=== PATIENT | female | born 1965 | race Caucasian/White ===

== ENCOUNTER 2019-05-05 11:22 | Emergency (ER) | payer MEDICARE, SELFPAY ==
[2019-05-05 11:28] VITALS: BP 117/68; PULSE 95; RESP 19; TEMP 36.3; O2SAT 100
--- NOTE | 2019-05-05 11:53 | ED.ABDPAIN ---
HPI - Abdominal Pain General Chief Complaint: Recheck/Abnormal Lab/Rx Stated Complaint: Feet and legs numb x 3 weeks Time Seen by Provider: 05/05/19 11:28 Source: patient Mode of arrival: ambulatory Limitations: no limitations History of Present Illness HPI narrative: Patient is a 53-year-old female who presents to emergency department for evaluation of abnormal blood work noting that she has been having some numbness to the lower extremities bilateral for the last 3 weeks followed by primary care had blood work performed was found to have leukocytosis and referred to emergency department for further evaluation. On arrival patient notes she has been having numbness to the posterior aspects of the legs from the feet up into the thighs patient denies similar occurrence in the past injury or trauma does have history of chronic low back pain and notes having had an unchanged recent MRI of the lumbar spine. Patient on arrival presents per normal gait no distress denies any illness or recent illness or possible sick contacts Related Data Allergies Allergy/AdvReac Type Severity Reaction Status Date / Time codeine Allergy Unknown Hives / Verified 05/05/19 11:34 Red Face morphine Allergy Unknown Swelling Verified 05/05/19 11:34 Penicillins Allergy Unknown Hives / Verified 05/05/19 11:34 Red Face Review of Systems Review of Systems: All systems reviewed & are unremarkable except as noted in HPI and below PMFSH Past Medical History Medical History (Updated 05/05/19 @ 14:22 by Kyree Bauer PA-C) Bipolar disorder Surgical History Surgical History History of lumbar surgery Social History Social History (Updated 05/05/19 @ 12:01 by Kyree Bauer PA-C) Smoking status: Current every day smoker Gender identity (if verbalized by the patient): Female Exam Narrative: Exam Narrative: GENERAL: Well-appearing, well-nourished, and in no acute distress. HEAD: Normocephalic, atraumatic. EYES: PERRLA and EOMI. ENT: Nares clear, no rhinorrhea or epistaxis. Mucous membranes moist. Oropharynx without tonsillar hypertrophy exudate or other lesions. Bilateral TMs pearly ferreira nonbulging NECK: Supple. No adenopathy or masses. CHEST: Clear to auscultation. No respiratory distress. No wheezes rales or rhonchi HEART: Regular rate and rhythm. No murmur heard. Normal peripheral pulses. ABDOMEN: Soft, nontender, nondistended EXTREMITIES: Normal range of motion. No edema. SKIN: Warm, dry, no rash. NEURO: No focal deficits. Alert and oriented x3. Cranial nerves II through XII grossly intact. Neurovascularly intact. Normal speech. Motor and sensory intact symmetrical in the extremities PSYCH: Normal mood and affect. Course Course Emergency Course: Patient in the room in no distress aware of case findings treatment plan and diagnosis agreeing to follow-up as directed Consultations Consultation #1: Reviewed case with primary care who will reevaluate patient in clinic Date: 05/05/19 Vital Signs Vital signs: Vital Signs Temperature 97.3 F L 05/05/19 11:28 Pulse Rate 95 05/05/19 11:28 Respiratory Rate 19 05/05/19 11:28 Blood Pressure 117/68 05/05/19 11:28 Pulse Oximetry 100 05/05/19 11:28 Temperature 97.3 F L 05/05/19 11:28 Pulse Rate 77 05/05/19 12:26 Respiratory Rate 18 05/05/19 12:26 Blood Pressure 102/71 05/05/19 12:26 Pulse Oximetry 96 05/05/19 12:26 MDM - Abdominal Pain MDM Narrative Medical decision making narrative: Patient in the room in no distress without any high risk changes in the blood work felt appropriate for continued outpatient reevaluation by primary care Lab Data Result diagrams: 05/05/19 11:50 05/05/19 11:50 Labs: Lab Results 05/05/19 05/05/19 05/05/19 Range/Units 11:50 11:50 11:50 WBC 11.5 H (4.5-10.0) K/mm3 RBC 4.47 (4.2-5.4) M/mm3 Hgb 12.0 (12.0-15.0) g
[2019-05-05 12:18] LABS: Basophils Absolute Auto 0.1 K/mm3 (0.0-0.1); Basophils Percent Auto 0.7 % (0.2-1.2); Eosinophils Absolute Auto 0.2 K/mm3 (0-0.3); Eosinophils Percent Auto 1.8 % (0-4.4); Hematocrit 38.4 % (37.0-47.0); Immature Granulocyte Absolute 0.04 K/mm3 (0.00-0.031); Immature Granulocyte Percent A 0.3 % (0-0.5); Lymphocytes Absolute Auto 2.27 K/mm3 (0.9-3.2); Lymphocytes Percent Auto 19.8 % (18.3-44.2); Mean Corpuscular HGB Conc 31.3 g/dl (32-36); Mean Corpuscular Hemoglobin 26.8 pg (26-34); Mean Corpuscular Volume 85.9 fl (80-100); Mean Platelet Volume 12.1 fl (7.4-10.4); Monocytes Absolute Auto 0.6 K/mm3 (0.1-0.6); Monocytes Percent Auto 5.5 % (2.6-8.5); Neutrophils Absolute Auto 8.2 K/mm3 (1.3-6.7); Neutrophils Percent Auto 71.9 % (45.5-73.1); Platelet Count Result 276 k/mm3 (150-375); Red Blood Count 4.47 M/mm3 (4.2-5.4); White Blood Count 11.5 K/mm3 (4.5-10.0)
[2019-05-05 12:26] VITALS: BP 102/71; PULSE 77; RESP 18; O2SAT 96
[2019-05-05] MEDS: SODIUM CHLORIDE 0.9% IV 500 ML 999 ML IV CONT (12:26)
[2019-05-05 12:30] LABS: Lactic Acid Reflex 1.8 mmol/L (0.7-2.1)
[2019-05-05 12:34] LABS: Alanine Aminotransferase 26 U/L (4-35); Albumin Level 4.1 g/dL (3.5-5.1); Alkaline Phosphatase 76 U/L (38-126); Aspartate Amino Transferase 30 U/L (14-36); Bilirubin,Total 0.2 mg/dL (0.2-1.3); Blood Urea Nitrogen 12 mg/dL (7-17); CRP < 0.5 mg/dL (<1.0); Calcium 8.9 mg/dL (8.4-10.2); Carbon Dioxide 26 mmol/L (22-30); Chloride 101 mmol/L (98-107); Estimated Glomerular Filt Rate > 60; Glucose 93 mg/dL (65-105); Magnesium 2.1 mg/dL (1.6-2.3); Phosphorus 4.4 mg/dL (2.5-4.5); Potassium 4.2 mmol/L (3.4-5.0); Sodium 138 mmol/L (137-145)
[2019-05-05 13:06] LABS: Erythrocyte Sedimentation Rate 19 mm/hr (0-20)
[2019-05-05 14:23] VITALS: BP 112/66; PULSE 71; RESP 14; O2SAT 99
[2019-05-05 15:53] VITALS: BP 101/61; PULSE 69; RESP 14; O2SAT 99
== END 2019-05-05 15:06 | disposition home or self-care (01) ==
PROVIDERS: Emergency Medicine Emergency Medical Services; Emergency Provider Emergency Medicine; PCP Student in an Organized Health Care Education/Training Program
DX: R20.2 Paresthesia of skin (principal); F17.200 Nicotine dependence, unspecified, uncomplicated
CPT/HCPCS: 36415; 80053; 83605; 83735; 84100; 85025; 85652; 86140; 87040; 96360; 99283; 99284; J7040

== ENCOUNTER 2020-01-03 09:45 | Outpatient (NON) | payer MEDICARE, SELFPAY ==
[2020-01-03 23:37] LABS: SARS-CoV-2 RNA PCR Negative
== END 2020-01-03 09:46 ==
LOC: ANHCOVIDDT 09:46
PROVIDERS: PCP Student in an Organized Health Care Education/Training Program; Visit Provider Student in an Organized Health Care Education/Training Program
DX: Z20.828 Contact with and (suspected) exposure to other viral communicable diseases (principal); R06.02 Shortness of breath; R05 Cough
CPT/HCPCS: 87635; C9803; U0003

== ENCOUNTER 2021-02-14 09:12 | Outpatient (CLI) | payer MEDICARE, SELFPAY ==
--- NOTE | ~2021-02-14 | XR_ITS ---
EXAMINATION: XR lumbar spine 2-3V DATE: 02/14/2021 09:25 INDICATION: Lumbar radiculopathy TECHNIQUE: Anteroposterior and lateral views of the lumbar spine, and cone-down lateral view of the l umbosacral junction were obtained. COMPARISON: 02/25/2013; CT, 01/13/2014 FINDINGS: There are changes of anterior and posterior fusion from L3 through L5. There is chronic and unchanged lucency surrounding the L5 screws. Bone alignment is normal. There is no fracture. Surgica l clips in the right upper quadrant are likely from prior cholecystectomy. Surgical changes are noted in the left upper quadrant. The bowel gas pattern is unremarkable. IMPRESSION: 1. Changes of anterior and posterior fusion from L3 through L5 with chronic lucency surrounding the L 5 screws, likely chronic loosening. No significant change. Reviewed, dictated and finalized at location A. RSHED PROGRAM MANAGER IMPRESSION: 1. Changes of anterior and posterior fusion from L3 through L5 with chronic donald ency surrounding the L5 screws, likely chronic loosening. No significant change .
== END 2021-02-14 09:13 | disposition home or self-care (01) ==
LOC: ANHIMG 09:16
PROVIDERS: PCP Student in an Organized Health Care Education/Training Program; Visit Provider Family Medicine
DX: M51.85 Other intervertebral disc disorders, thoracolumbar region (principal); F17.290 Nicotine dependence, other tobacco product, uncomplicated; F17.208 Nicotine dependence, unspecified, with other nicotine-induced disorders; Z98.1 Arthrodesis status; E88.81 Metabolic syndrome and other insulin resistance
CPT/HCPCS: 72100

== ENCOUNTER 2021-05-19 20:18 | Emergency (ER) | payer MEDICARE, SELFPAY ==
--- NOTE | ~2021-05-19 | XR_ITS ---
EXAMINATION: XR wrist LT min 3V DATE: 05/19/2021 20:46 INDICATION: Left wrist pain and deformity post fall TECHNIQUE: Posteroanterior, ulnar deviation, oblique, and lateral views of the left wrist were obtain ed. COMPARISON: none FINDINGS: Nondisplaced transverse extra-articular fracture across the distal metaphysis of the left radius. The re is dorsal impaction with buckling and mild comminution along the dorsal cortex. This results in 17 degrees dorsal tilt of the distal articular surface no other fractures identified. Normal alignment and joint spaces in the visualized left hand. Soft tissue swelling about the wrist. IMPRESSION: 1. Nondisplaced dorsally impacted extra articular fracture of the distal left radius. Reviewed, dictated and finalized at location A. IMPRESSION: 1. Nondisplaced dorsally impacted extra articular fracture of the distal left r adius.
[2021-05-19 20:19] VITALS: BP 129/72; PULSE 83; RESP 18; TEMP 35.9; O2SAT 100
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
--- NOTE | 2021-05-19 21:19 | PC.NURSE ---
left volar splint applied with cast padding and nelly wrap. C post application: CR< 2sec, CMS intact.
[2021-05-19 21:38] VITALS: PULSE 85; RESP 18; O2SAT 100
== END 2021-05-19 21:39 | disposition home or self-care (01) ==
PROVIDERS: Emergency Provider Emergency Medicine; PCP Student in an Organized Health Care Education/Training Program
DX: S52.552A Other extraarticular fracture of lower end of left radius, initial encounter for closed fracture (principal); F17.200 Nicotine dependence, unspecified, uncomplicated; W18.39XA Other fall on same level, initial encounter
CPT/HCPCS: 29125; 73110; 99284

== ENCOUNTER 2022-03-06 11:50 | Outpatient (CLI) | payer MEDICARE, SELFPAY ==
--- NOTE | ~2022-03-06 | XR_ITS ---
Lumbosacral Spine: AP and lateral views Clinical History: Pain COMPARISON: 02/14/2021 Findings: The normal lordotic curve is maintained. Stable posterior fusion hardware from L3 through L 5 with bilateral rods and transpedicular screws, as well as associated disc fusion devices at the L3- L4 and L4-L5 disc spaces. Remaining disc spaces are intact. The sacroiliac joints are normally outlin ed. Impression: No acute abnormality. No change from prior exam. Stable postoperative findings, as above. Reviewed, dictated and finalized at location M. LOPE STAMPING MACHINE OPERATOR Impression: No acute abnormality. No change from prior exam. Stable postoperative findings, as above.
== END 2022-03-06 11:51 | disposition home or self-care (01) ==
PROVIDERS: PCP Student in an Organized Health Care Education/Training Program; Visit Provider Pain Medicine Interventional Pain Medicine
DX: M47.26 Other spondylosis with radiculopathy, lumbar region (principal); E88.81 Metabolic syndrome and other insulin resistance; F17.290 Nicotine dependence, other tobacco product, uncomplicated; G89.4 Chronic pain syndrome; M51.37 Other intervertebral disc degeneration, lumbosacral region; M51.84 Other intervertebral disc disorders, thoracic region
CPT/HCPCS: 72100

== ENCOUNTER 2022-07-22 13:14 | Emergency (ER) | payer MEDICARE, SELFPAY ==
--- NOTE | ~2022-07-22 | XR_ITS ---
EXAMINATION: XR foot RT min 3V DATE: 07/22/2022 13:33 INDICATION: Right foot injury and pain. TECHNIQUE: 4 views of right foot were obtained. COMPARISON: None. FINDINGS: Bone alignment is normal. No fracture. There is mild osteoarthritis of talonavicular joint. There is an enthesophyte at posterior aspect of calcaneal tuberosity. IMPRESSION: 1. No fracture. Reviewed, dictated and finalized at location A. IMPRESSION: 1. No fracture.
[2022-07-22 13:25] VITALS: BP 111/75; PULSE 89; RESP 16; TEMP 36.6; O2SAT 97
[2022-07-22 13:28] VITALS: BP 111/75; PULSE 89; RESP 16; TEMP 36.6; O2SAT 97
--- NOTE | 2022-07-22 13:39 | ED.LOWEXIN ---
HPI - Extremity Injury (Lower) General Chief Complaint: Extremity Injury, Lower Stated Complaint: R FOOT INJURY Time Seen by Provider: 07/22/22 13:38 Source: patient and RN notes reviewed Mode of arrival: ambulatory Limitations: no limitations History of Present Illness HPI Narrative: 56-year-old female presents with concern for foot injury. She reports about an hour prior to arrival she got up from her chair and tripped and bent her foot awkwardly. She reports dorsal foot pain. She denies intervention MD complaint: foot injury Related Data Home Medications Medication Instructions Recorded Confirmed aripiprazole 10 mg tablet 10 mg PO DAILY 07/22/22 07/22/22 buspirone 5 mg tablet 5 mg PO TID 07/22/22 07/22/22 desvenlafaxine succinate 100 mg 100 mg PO DAILY 07/22/22 07/22/22 tablet,extended release 24 hr methocarbamol 500 mg tablet 500 mg PO BID 07/22/22 07/22/22 oxycodone-acetaminophen 10 mg-325 1 tablet PO TID 07/22/22 07/22/22 mg tablet trazodone 100 mg tablet 10 mg PO HS 07/22/22 07/22/22 Allergies Allergy/AdvReac Type Severity Reaction Status Date / Time codeine Allergy Unknown Hives / Verified 07/22/22 13:26 Red Face morphine Allergy Unknown Swelling Verified 07/22/22 13:26 Penicillins Allergy Unknown Hives / Verified 07/22/22 13:26 Red Face Review of Systems Review of Systems: CONSTITUTIONAL: Denies malaise, chills, sweats, or fever. SKIN: Denies rash or itching, open skin, laceration, abrasion, redness, warmth, swelling. MUSCULOSKELETAL: Reports right dorsal foot pain, bruising NEUROLOGIC: Denies numbness, weakness All systems reviewed & are unremarkable except as noted in HPI and below PMFSH Past Medical History Medical History Bipolar disorder Surgical History Surgical History History of lumbar surgery Social History Social History Smoking status: Current every day smoker Gender identity (if verbalized by the patient): Female Comments At time of signature, agree with nursing past medical, surgical, social and family history. There is no relevant family history pertinent to the presenting complaint Exam Narrative: GENERAL: Well-appearing, well-nourished, and in no acute distress. HEAD: Normocephalic, atraumatic. EYES: PERRLA, conjunctivae clear NECK: Supple. CHEST: Speaks in full sentences. No respiratory distress. HEART: Regular rate and rhythm. Normal and equal peripheral pulses. EXTREMITIES: Right ankle, foot, digits have normal strength and sensation, normal range of motion. No edema, mild dorsal ecchymosis. 5/5 strength with ankle in digit flexion and extension. Normal sensation with sensitivity to light touch and pain. Lateral foot tenderness. No open wounds, no skin tenting, no devitalized tissue or atrophy, no trophic changes, no obvious deformity, alignment normal, nearby joints and structures intact. Distal pulses palpable and equal bilaterally, skin warm, dry, pink. Capillary refill less than 3 seconds. SKIN: Warm, dry, no rash. NEURO: Alert and oriented x3. PSYCH: Normal mood and affect Course Course Emergency Course: Patient is aware of diagnosis, understands and agrees to treatment plan. Anticipatory guidance given. Patient agrees to follow-up as directed and is aware of reasons to seek care at the emergency department. Portions of this record may have been created with voice recognition software Level of Care: Express Care Visit Vital Signs Vital signs: Vital Signs Temperature 97.8 F 07/22/22 13:25 Pulse Rate 89 07/22/22 13:25 Respiratory Rate 16 07/22/22 13:25 Blood Pressure 111/75 07/22/22 13:25 Pulse Oximetry 97 07/22/22 13:25 Temperature 97.8 F 07/22/22 13:28 Pulse Rate 89 07/22/22 13:28 Respiratory Rate 16 07/22/22 13:28 Blood Pressure
== END 2022-07-22 14:38 | disposition home or self-care (01) ==
PROVIDERS: Emergency Provider Nurse Practitioner; PCP Student in an Organized Health Care Education/Training Program
DX: S93.601A Unspecified sprain of right foot, initial encounter (principal); X50.9XXA Other and unspecified overexertion or strenuous movements or postures, initial encounter; F31.9 Bipolar disorder, unspecified; F17.200 Nicotine dependence, unspecified, uncomplicated
CPT/HCPCS: 73630; 99213; G0463

== ENCOUNTER 2023-02-24 09:58 | Outpatient (CLI) | payer MEDICARE, SELFPAY ==
--- NOTE | ~2023-02-24 | XR_ITS ---
Lumbosacral Spine: AP and lateral views Clinical History: Postoperative COMPARISON: 03/06/2022 Findings: The normal lordotic curve is maintained. No acute fracture or subluxations seen. There is s table posterior and interbody fusion from L3 through L5. There is mild to moderate degenerative disc narrowing at L2-L3. The sacroiliac joints are normally outlined. Impression: Stable posterior and interbody fusion from L3 through L5. Mild to moderate degenerative disc narrowing at L2-L3. Reviewed, dictated and finalized at location M. ONAL FACILITIES MANAGER Impression: Stable posterior and interbody fusion from L3 through L5. Mild to moderate degenerative disc narrowing at L2-L3.
== END 2023-02-24 09:59 | disposition home or self-care (01) ==
PROVIDERS: PCP Student in an Organized Health Care Education/Training Program; Visit Provider Pain Medicine Interventional Pain Medicine
DX: M51.37 Other intervertebral disc degeneration, lumbosacral region (principal); M47.26 Other spondylosis with radiculopathy, lumbar region; F17.208 Nicotine dependence, unspecified, with other nicotine-induced disorders; Z98.1 Arthrodesis status
CPT/HCPCS: 72100

== ENCOUNTER 2024-02-02 11:21 | Outpatient (CLI) | payer MEDICARE, SELFPAY ==
--- NOTE | ~2024-02-02 | CT_ITS ---
EXAMINATION:CT lung screening DATE: 02/02/2024 11:39 INDICATION: Personal history of nicotine dependence. Current smoker with 34 pack year history. TECHNIQUE: Computed tomography (CT) of the chest was performed without intravenous contrast. Automate d exposure control and iterative reconstruction technique were employed. The dose-length product (DLP ) was 65.69 mGy-cm. COMPARISON: CT abdomen and pelvis 04/12/2015 FINDINGS: The lungs demonstrate mild atelectasis. No pleural effusion. The heart size is normal. No p ericardial effusion. There are surgical changes of the stomach. There is a small sliding hiatal herni a. There are changes of cholecystectomy. There is moderate thoracic spondylosis. IMPRESSION: 1. Lung-RADS category 1: Negative. Continue annual screening with noncontrast low-dose chest CT in 12 months. Reviewed, dictated and finalized at location A. IZATION MANAGER IMPRESSION: 1. Lung-RADS category 1: Negative. Continue annual screening with noncontrast l ow-dose chest CT in 12 months.
== END 2024-02-02 11:22 | disposition home or self-care (01) ==
LOC: ANHIMG 11:23
PROVIDERS: PCP Student in an Organized Health Care Education/Training Program; Visit Provider Student in an Organized Health Care Education/Training Program
DX: Z12.2 Encounter for screening for malignant neoplasm of respiratory organs (principal); Z87.891 Personal history of nicotine dependence
CPT/HCPCS: 71271

== ENCOUNTER 2024-07-06 15:58 | Outpatient (CLI) | payer MEDICARE, SELFPAY ==
--- NOTE | ~2024-07-06 | XR_ITS ---
Lumbosacral Spine: AP and lateral views Clinical History: Pain COMPARISON: 02/24/2023 Findings: The normal lordotic curve is maintained. Stable posterior and interbody fusion from L3 thro ugh L5, bilateral rods and transpedicular screws present, as well as disc fusion devices. Osseous and orthopedic hardware alignment is unchanged. Moderate degenerative disc change at L2-L3 present. The sacroiliac joints are normally outlined. Impression: Stable fusion changes from L3 through L5, as detailed above. Moderate degenerative disc narrowing at L2-L3. Reviewed, dictated and finalized at location M. Impression: Stable fusion changes from L3 through L5, as detailed above. Moderate degenerative disc narrowing at L2-L3.
--- OUTSIDE RECORDS SUMMARY | 2024-07-06 16:34 | XMS_ITS | Continuity of Care Document ---
Author Organization [facility] Address [address] [place] [address] [place] [address] Phone Care Team Providers Care Planer Operator Name Role Phone Barrett Bañuelos MD Unavailable [...] Diagnoses Date Provider Providers Copied on Encounter [facility], [address], [place], [address], [place] tel:[phone] [facility] No Information 7 Sarmad Hyde. [address] [place], [place], [address] , [place]. [phone] OFFICE/OUTPA TIENT VISIT, EST [facility], [address], [place], [place], [address], [place] [phone] [facility] high RA (chief complaint) lft (chief complaint) B12 (chief complaint) Liver diseaseRheumatoid arthritis with rheumatoid factor, unspecifiedVitamin B12 deficiencyEncounter for oth screening for malignant neoplasm of breast 7 Sarmad Hyde. [address], [place], [place], [address] , [place]. tel:[phone] PREV VISIT, EST, AGE 40-64 [facility], [address], [place], [place], [address], [place] tel:[phone] [facility] PHysical (chief complaint) Encounter for general adult medical exam w abnormal findingsLiver diseasePain in unspecified jointBariatric surgery status 7 Sarmad Hyde. [address], [place], [place], [address] , [place]. [phone] Referring Provider: Radha Keane [address], [place], [place], [address]. tel:[phone] OFFICE/OUTPA TIENT VISIT, EST [facility], [address], [place], [place], [address], [place] tel:[phone] [facility] palpitatio n1 (chief complaint) weight loss1 (chief complaint) PalpitationsAbnorma l weight loss 6 Sarmad Hyde. [address], [place], [place], [address] , [place]. tel:[phone] Referring Provider: Radha Keane [address], [place], [place], [address]. tel:[phone] OFFICE/OUTPA TIENT VISIT, [facility], [address], [place], [place], [address], [place] tel:[phone] [facility] palpitatio n1 (chief complaint) weight loss1 (chief complaint) PalpitationsAbnorma l weight lossLow vision, both eyes 6 Sarmad Hyde. [address], [place], [place], [address] , [place]. tel:[phone] Referring Provider: Radha Keane [address], [place], [place], [address]. tel:[phone] OFFICE/OUTPA TIENT VISIT, [facility], [address], [place], [place], [address], [place] [phone] [facility] anxiety1 (chief complaint) Anxiolytic dependencePatient noncompliance w/ other medical regimen 6 Sarmad Hyde. [address], [place], [place], [address] , [place]. tel:[phone] Referring Provider: Radha Keane [address], [place], [place], [address]. tel:[phone] OFFICE/OUTPA TIENT VISIT, [facility], [address], [place], [place], [address], [place] [phone] [facility] anxiety1 (chief complaint) GERD (chief complaint) GERD w/o esophagitisAnxiolyt ic dependence 6 Sarmad Hyde. [address], [place], [place], [address] , [place]. tel:[phone] Referring Provider: Radha Keane [address], [place], [place], [address]. tel:[phone] OFFICE/OUTPA TIENT VISIT, [facility], [address], [place], [place], [address], [place] tel:[phone] [facility] anxiety1 (chief complaint) GERD1 (chief complaint) GERD without esophagitisAnxiolyt ic dependence 6 Sarmad Hyde. [address], [place], [place], [address] , [place]. tel:[phone] Referring Provider: Radha Keane [address], [place], [place], [address]. tel:[phone] OFFICE/OUTPA TIENT VISIT, [facility], [address], [place], [place], [address], [place] tel:[phone] [facility] Anxiety1 (chief complaint) abd pain1 (chief complaint) Abdominal painGeneralized anxiety disorder May-0 4201 6 Sarmad Hyde. [address], [place], [place], [address] , [place]. tel:[phone] Referring Provider: Barrett Bañuelos, [address], [place], [place], [address]. tel:[phone] OFFICE/OUTPA TIENT VISIT, [facility], [address], [place], [place], [address], [place] tel:[phone] [facility] anxiety1 (chief complaint) GERD1 (chief complaint) headache1 (chief complaint) HLP (chief complaint) GERD without esophagitisMixed hyperlipidemiaGener alized anxiety disorderVitamin D deficiency, unspecified Apr-0 5-201 6 Sarmad Hyde. [address], [place], [address] , [place]. tel:[phone] Referring Provider: Radha Keane [address], [place], [place], [address]. tel:[phone] OFFICE/OUTPA TIENT VISIT, [facility], [address], [place], [address], [place] tel:[phone] [facility] abdominal pain (chief complaint) abd pain1 (chief complaint) anxiety1 (chief complaint) Abdominal painGeneralized anxiety disorder Mar-0 9201 6 Sarmad Hyde. [address], [place], [place], [address] , [place]. tel:[phone] Referring Provider: Radha Keane [address], [place], [place], [address]. tel:[phone] OFFICE/OUTPA TIENT VISIT, [facility], [address], [place], [address], [place] tel:[phone] [facility] Medicine anxiety1 (chief complaint) abd pain (chief complaint) Other specified diseases of biliary tractAbdominal painGeneralized anxiety disorder 6 Sarmad Hyde. [address], [place], [place], [address] , [place]. tel:[phone] Referring Provider: Barrett Bañuelos, [address], [place], [place], [address]. tel:[phone] OFFICE/OUTPA TIENT VISIT, [facility], [address], [place], [address], [place] tel:[phone] [facility] anxiety1 (chief complaint) GERD1 (chief complaint) GERD w/o esophagitisGenerali zed anxiety disorderMixed hyperlipidemia 6 Sarmad Hyde. [address], [place], [place], [address] , [place]. tel:[phone] Referring Provider: Radha Keane [address], [place], [place], [address]. tel:[phone] OFFICE/OUTPA TIENT VISIT, [facility], [address], [place], [place], [address], [place] tel:[phone] [facility] Anxiety1 (chief complaint) GERD1 (chief complaint) postmenopa usal1 (chief complaint) headache1 (chief complaint) Menopausal disorderGeneralized Anxiety DisorderMigraine without aura, not intractable, without status migrainosus 5 Sarmad Hyde. [address], [place], [place], [address] , [place]. tel:[phone] Referring Provider: Radha Keane [address], [place], [address]. tel:[phone] OFFICE/OUTPA TIENT VISIT, [facility], [address], [place], [place], [address], [place] tel:[phone] [facility] Medicine headacahe1 (chief complaint) GERD1 (chief complaint) Anxiety1 (chief complaint) GERD without esophagitisMigraine without aura, not intractable, without status migrainosusGenerali zed anxiety disorderEncounter for screening for osteoporosis 5 Sarmad Hyde. [address], [place], [address] , [place]. [phone] Referring Provider: Radha Keane [address], [place], [address]. tel:[phone] PREV VISIT, EST, AGE 40-64 [facility], [address], [place], [place], [address], [place] tel:[phone] [facility] Physical (chief complaint) Encounter for adult health check-upChronic migraine w/o aura, not intractable, w/o stat migrGeneralized abdominal painGeneralized anxiety disorder 5 Sarmad Hyde. [address], [place], [place], [address] , [place]. [phone] Referring Provider: Radha Keane [address], [place], [place], [address]. tel:[phone] OFFICE/OUTPA TIENT VISIT, [facility], [address], [place], [address], [place] tel:[phone] [facility] headache (chief complaint) Anxeity (chief complaint) abd pain (chief complaint) HeadacheAbnormal MRI of brainAbdominal pain 5 Sarmad Hyde. [address], [place], [address] , [place]. tel:[phone] Referring Provider: Radha Keane [address], [place], [place], [address]. tel:[phone] OFFICE/OUTPA TIENT VISIT, [facility], [address], [place], [place], [address], [place] tel:[phone] [facility] vomiting (chief complaint) Anxiety (chief complaint) headache (chief complaint) postmeno (chief complaint) Generalized anxiety disorderEsophageal refluxHeadachePostm enopausal 5 Sarmad Hyde. [address], [place], [place], [address] , [place]. tel:[phone] Referring Provider: Radha Keane [address], [place], [place], [address]. tel:[phone] OFFICE/OUTPA TIENT VISIT, [facility], [address], [place], [place], [address], [place] tel:[phone] [facility] headache (chief complaint) Anxeity (chief complaint) HeadacheLumbagoGene ralized anxiety disorder 5 Sarmad Hyde. [address], [place], [place], [address] , [place]. [phone] Referring Provider: Radha Keane [address], [place], [place], [address]. tel:[phone] OFFICE/OUTPA TIENT VISIT, [facility], [address], [place], [place], [address], [place] tel:[phone] [facility] headache (chief complaint) Anxiety (chief complaint) HeadacheBenign neoplasm of colon 5 Sarmad Hyde. [address], [place], [place], [address] , [place]. [phone] Referring Provider: Radha Keane [address], [place], [place], [address]. tel:[phone] OFFICE/OUTPA TIENT VISIT, [facility], [address], [place], [place], [address], [place] tel:[phone] [facility] GERD (chief complaint) Anxiety (chief complaint) GERDGeneralized anxiety disorder 5 Sarmad Hyde. [address], [place], [address] , [place]. tel:[phone] Referring Provider: Radha Keane [address], [place], [place], [address]. tel:[phone] OFFICE/OUTPA TIENT VISIT, [facility], [address], [place], [place], [address], [place] [phone] [facility] Anxiety (chief complaint) GERD (chief complaint) headache (chief complaint) back pain (chief complaint) GERDHeadacheGeneral ized anxiety disorderOpioid type dependence, unspecified use 5 Sarmad Hyde. [address], [place], [place], [address] , [place]. tel:[phone] Referring Provider: Barrett Bañuelos, [address], [place], [place], [address]. tel:[phone] OFFICE/OUTPA TIENT VISIT, [facility], [address], [place], [address], [place] tel:[phone] [facility] GERD (chief complaint) Anxiety (chief complaint) GERDSedative, hypnotic or anxiolytic dependence, unspecified 5 Sarmad Hyde. [address], [place], [place], [address] , [place]. tel:[phone] Referring Provider: Radha Keane [address], [place], [place], [address]. tel:[phone] OFFICE/OUTPA TIENT VISIT, [facility], [address], [place], [place], [address], [place] tel:[phone] [facility] HLP (chief complaint) back pain (chief complaint) anxiety (chief complaint) GERD (chief complaint) GERDLumbagoOther and unspecified hyperlipidemiaGener alized anxiety disorder 5 Sarmad Hyde. [address], [place], [place], [address] , [place]. tel:[phone] Referring Provider: Radha Keane [address], [place], [place], [address]. tel:[phone] OFFICE/OUTPA TIENT VISIT, [facility], [address], [place], [place], [address], [place] tel:[phone] [facility] colon polyp (chief complaint) headache (chief complaint) anxiety (chief complaint) back pain (chief complaint) Benign neoplasm of colonGERDHeadacheLu mbago 5 Sarmad Hyde. [address], [place], [place], [address] , [place]. tel:[phone] Referring Provider: Barrett Bañuelos, [address], [place], [place], [address]. tel:[phone] OFFICE/OUTPA TIENT VISIT, [facility], [address], [place], [place], [address], [place] tel:[phone] [facility] back pain (chief complaint) anxiety (chief complaint) headache (chief complaint) LumbagoHeadacheGene ralized anxiety disorder 4 Sarmad Hyde. [address], [place], [place], [address] , [place]. [phone] Referring Provider: Radha Keane [address], [place], [place], [address]. tel:[phone] OFFICE/OUTPA TIENT VISIT, [facility], [address], [place], [place], [address], [place] tel:[phone] [facility] headache (chief complaint) Anxeity (chief complaint) GERD (chief complaint) back pain (chief complaint) HeadacheGERDLumbago 4 Sarmad Hyde. [address], [place], [place], [address] , [place]. tel:[phone] Referring Provider: Barrett Bañuelos [address], [place], [place], [address]. tel:[phone] OFFICE/OUTPA TIENT VISIT, [facility], [address], [place], [place], [address], [place] tel:[phone] [facility] scabie (chief complaint) shingle (chief complaint) anxiety (chief complaint) eye (chief complaint) ScabiesHerpes zoster with unspecified complicationAcute conjunctivitis, unspecified 4 Sarmad Hyde. [address], [place], [address] , [place]. tel:[phone] Referring Provider: Barrett Bañuelos [address], [place], [place], [address]. tel:[phone] OFFICE/OUTPA TIENT VISIT, [facility], [address], [place], [place], [address], [place] tel:[phone] [facility] itching (chief complaint) Scabies 4 Sarmad Hyde. [address], [place], [place], [address] , [place]. [phone] Referring Provider: Barrett Bañuelos, [address], [place], [place], [address]. tel:[phone] OFFICE/OUTPA TIENT VISIT, [facility], [address], [place], [place], [address], [place] [phone] [facility] rash (chief complaint) anxiety (chief complaint) headache (chief complaint) Herpes zoster with unspecified complicationHeadach e 4 Sarmad Hyde. [address], [place], [place], [address] , [place]. [phone] Referring Provider: Radha Keane [address], [place], [place], [address]. tel:[phone] OFFICE/OUTPA TIENT VISIT, [facility], [address], [place], [place], [address], [place] [phone] [facility] anxiety (chief complaint) headache (chief complaint) HeadacheGERD 4 Sarmad Hyde. [address], [place], [place], [address] , [place]. tel:[phone] Referring Provider: Radha Keane [address], [place], [place], [address]. tel:[phone] OFFICE/OUTPA TIENT VISIT, [facility], [address], [place], [place], [address], [place] tel:[phone] [facility] headache (chief complaint) anxiety (chief complaint) GERD (chief complaint) GERDHeadacheOther chronic sinusitis 4 Sarmad Escudero [address], [place], [place], [address] , [place]. tel:[phone] Referring Provider: Radha Keane [address], [place], [place], [address]. tel:[phone] OFFICE/OUTPA TIENT VISIT, [facility], [address], [place], [place], [address], [place] tel:[phone] [facility] sinus (chief complaint) anxiety (chief complaint) Sinusitis, AcuteLumbago 4 Sarmad Escudero [address], [place], [place], [address] , [place]. tel:[phone] Referring Provider: Radha Keane [address], [place], [place], [address]. tel:[phone] OFFICE/OUTPA TIENT VISIT, [facility], [address], [place], [place], [address], [place] tel:[phone] [facility] back pain (chief complaint) headache (chief complaint) GERD (chief complaint) HeadacheLumbagoGERD 4 Sarmad Escudero [address], [place], [place], [address] , [place]. tel:[phone] Referring Provider: Radha Keane [address], [place], [place], [address]. tel:[phone] OFFICE/OUTPA TIENT VISIT, [facility], [address], [place], [place], [address], [place] tel:[phone] [facility] headache (chief complaint) anxiety (chief complaint) tinnitus (chief complaint) Tinnitus, unspecifiedHeadache 4 Sarmad Escudero [address], [place], [address] , [place]. tel:[phone] Referring Provider: Radha Keane [address], [place], [place], [address]. tel:[phone] OFFICE/OUTPA TIENT VISIT, [facility], [address], [place], [place], [address], [place] tel:[phone] [facility] tinnitus (chief complaint) anxiety (chief complaint) headache (chief complaint) Tinnitus, unspecifiedHeadache Apr-0 2-201 4 Sarmad Hyde. [address], [place], [place], [address] , [place]. tel:[phone] Referring Provider: Radha Keane [address], [place], [place], [address]. tel:[phone] OFFICE/OUTPA TIENT VISIT, [facility], [address], [place], [place], [address], [place] tel:[phone] [facility] anxiety (chief complaint) headache (chief complaint) Syncope and collapseHeadache Mar-0 5-201 4 Sarmad Hyde. [address], [place], [place], [address] , [place]. tel:[phone] Referring Provider: Radha Keane [address], [place], [place], [address]. tel:[phone] OFFICE/OUTPA TIENT VISIT, [facility], [address], [place], [place], [address], [place] tel:[phone] [facility] headache (chief complaint) GERD (chief complaint) anxiety (chief complaint) HeadacheGERD Feb-0 4-201 4 Sarmad Hyde. [address], [place], [place], [address] , [place]. tel:[phone] Referring Provider: Radha Keane [address], [place], [place], [address]. tel:[phone] OFFICE/OUTPA TIENT VISIT, [facility], [address], [place], [address], [place] tel:[phone] [facility] abdominal pain (chief complaint) anxiety (chief complaint) back pain (chief complaint) GERDLumbago 4 Sarmad Hyde. [address], [place], [place], [address] , [place]. tel:[phone] Referring Provider: Barrett Bañuelos, [address], [place], [place], [address]. tel:[phone] OFFICE/OUTPA TIENT VISIT, [facility], [address], [place], [place], [address], [place] tel:[phone] [facility] abdominal pain (chief complaint) anxiety (chief complaint) GERDAbdominal Pain 3 Sarmad Hyde. [address], [place], [place], [address] , [place]. tel:[phone] Referring Provider: Radha Keane [address], [place], [place], [address]. tel:[phone] OFFICE/OUTPA TIENT VISIT, [facility], [address], [place], [place], [address], [place] tel:[phone] [facility] abdominal pain (chief complaint) anxiety (chief complaint) headache (chief complaint) Abdominal PainGERDHeadache 3 Sarmad Hyde. [address], [place], [place], [address] , [place]. tel:[phone] Referring Provider: Radha Keane [address], [place], [place], [address]. tel:[phone] OFFICE/OUTPA TIENT VISIT, [facility], [address], [place], [place], [address], [place] tel:[phone] [facility] abdominal pain (chief complaint) anxiety (chief complaint) Abdominal PainGERDLumbago 0 3 Sarmad Hyde. [address], [place], [place], [address] , [place]. tel:[phone] Referring Provider: Radha Keane [address], [place], [place], [address]. tel:[phone] OFFICE/OUTPA TIENT VISIT, [facility], [address], [place], [place], [address], [place] tel:[phone] [facility] anxiety (chief complaint) vomiting (chief complaint) headache (chief complaint) GERDHeadacheNausea And Vomiting 3 Sarmad Hyde. [address], [place], [place], [address] , [place]. tel:[phone] Referring Provider: Radha Keane [address], [place], [place], [address]. tel:[phone] OFFICE/OUTPA TIENT VISIT, [facility], [address], [place], [place], [address], [place] tel:[phone] [facility] anxiety (chief complaint) pain (chief complaint) GERD (chief complaint) Generalized anxiety disorderGERDPain in joint involving multiple sites 3 Sarmad Hyde. [address], [place], [place], [address] , [place]. tel:[phone] Referring Provider: Radha Keane [address], [place], [place], [address]. tel:[phone] OFFICE/OUTPA TIENT VISIT, [facility], [address], [place], [place], [address], [place] tel:[phone] [facility] anxiety (chief complaint) headache (chief complaint) arthritis (chief complaint) Generalized anxiety disorderHeadacheCHR ONIC PAIN NEC 3 Sarmad Hyde. [address], [place], [place], [address] , [place]. tel:[phone] Referring Provider: Radha Keane [address], [place], [place], [address]. tel:[phone] OFFICE/OUTPA TIENT VISIT, [facility], [address], [place], [place], [address], [place] tel:[phone] [facility] Headache (chief complaint) GERD (chief complaint) chronic pain (chief complaint) anxiety (chief complaint) HeadacheGERDGeneral ized anxiety disorder 3 Sarmad Hyde. [address], [place], [place], [address] , [place]. tel:[phone] Referring Provider: Radha Keane [address], [place], [place], [address]. tel:[phone] OFFICE/OUTPA TIENT VISIT, [facility], [address], [place], [address], [place] tel:[phone] [facility] GERD (chief complaint) anxiety (chief complaint) GERDGeneralized anxiety disorderBipolar disorder, unspecified 3 Sarmad Escudero [address], [place], [place], [address] , [place]. tel:[phone] Referring Provider: Radha Keane [address], [place], [place], [address]. tel:[phone] OFFICE/OUTPA TIENT VISIT, [facility], [address], [place], [place], [address], [place] tel:[phone] [facility] headache (chief complaint) anxiety (chief complaint) GERD (chief complaint) GERDHeadacheGeneral ized anxiety disorder 3 Sarmad Escudero [address], [place], [place], [address] , [place]. tel:[phone] Referring Provider: Radha Keane [address], [place], [place], [address]. tel:[phone] OFFICE/OUTPA TIENT VISIT, [facility], [address], [place], [place], [address], [place] tel:[phone] [facility] Headache (chief complaint) abdominal pain (chief complaint) HeadacheGeneralized anxiety disorderGERD 3 Sarmad Escudero [address], [place], [place], [address] , [place]. tel:[phone] Referring Provider: Barrett Bañuelos, [address], [place], [place], [address]. tel:[phone] OFFICE/OUTPA TIENT VISIT, [facility], [address], [place], [place], [address], [place] tel:[phone] [facility] abdominal pain (chief complaint) headache (chief complaint) anxiety (chief complaint) insomnia (chief complaint) Abdominal PainHeadacheGeneral ized anxiety disorderInsomnia, Other 3 Sarmad Hyde. [address], [place], [place], [address] , [place]. [phone] Referring Provider: aBrrett Bañuelos, [address], [place], [place], [address]. tel:[phone] OFFICE/OUTPA TIENT VISIT, [facility], [address], [place], [place], [address], [place] tel:[phone] [facility] epilpesy (chief complaint) anxiety (chief complaint) Epilepsy, unspecified, without mention of intractable epilepsyGeneralized anxiety disorder 3 Sarmad Hyde. [address], [place], [place], [address] , [place]. tel:[phone] Referring Provider: Radha Keane [address], [place], [place], [address]. tel:[phone] OFFICE/OUTPA TIENT VISIT, [facility], [address], [place], [place], [address], [place] tel:[phone] [facility] anxiety (chief complaint) bipolar (chief complaint) back pain (chief complaint) Generalized anxiety disorderMajor depressive affective disorder, single episode, mild degreeLumbago 2 Sarmad Hyde. [address], [place], [place], [address] , [place]. tel:[phone] Referring Provider: Radha Keane [address], [place], [address]. tel:[phone] OFFICE/OUTPA TIENT VISIT, [facility] [facility], [address], [place], [place], [id number], [place] tel:[phone] [facility] syncope (chief complaint) depression (chief complaint) Syncope and collapseGeneralized anxiety disorderBipolar disorder, unspecified 2 Sarmad Hyde. [address], [place], [place], [id number] , [place]. tel:[phone] Referring Provider: Barrett Bañuelos, [address], [place], [place], [id number]. tel:[phone] OFFICE/OUTPA TIENT VISIT, [facility], [address], [place], [place], [address], [place] tel:[phone] [facility] tobacco (chief complaint) Tobacco Abuse 2 Sarmad Hyde. [address], [place], [place], [address] , [place]. tel:[phone] Referring Provider: Radha Keane [address], [place], [place], [id number]. tel:[phone] OFFICE/OUTPA TIENT VISIT, [facility], [address], [place], [place], [address], [place] tel:[phone] [facility] anxiety (chief complaint) epilepsy (chief complaint) EPILEPSY-UNSPECIFIE DLumbagoMajor depressive affective disorder, single episode, mild degreeSyncope and collapse 2 Sarmad Hyde. [address], [place], [place], [id number] , [place]. tel:[phone] Referring Provider: Radha Keane [address], [place], [place], [address]. tel:[phone] OFFICE/OUTPA TIENT VISIT, [facility], [address], [place], [place], [address], [place] tel:[phone] [facility] viral (chief complaint) Viral Infection, Unspecified 2 Sarmad Hyde. [address], [place], [place], [address] , [place]. [phone] Referring Provider: Barrett Bañuelos, [address], [place], [place], [address]. tel:[phone] OFFICE/OUTPA TIENT VISIT, EST [facility], [address], [place], [place], [address], [place] [phone] [facility] back pain (chief complaint) anxiety (chief complaint) LumbagoGeneralized anxiety disorderGeneralized convulsive epilepsy, with intractable epilepsy 2 Sarmad Hyde. [address], [place], [place], [address] , [place]. [phone] Family History Family Member Type Diagnosis Age [...] MD [address] [place], [place], [id number] Ordered: Referrals: Lyssa Aparicio MD. Evaluate and treat ordered Referral Ordered: MRI ABDOMEN W/O & W/DYE ordered Referral Ordered: Faisal West (related to Pain in unspecified joint) ordered Referral Referred To: [facility]
[address] [place], [phone] Ordered: Referrals: Faisal West. Evaluate and treat [...] she does have mulitplie joint pain chronically. weight loss1 Pt has weight lo ss. Pt had normal CT of chest, abdomen and pelvis. Pt had normal lab work. Pt denies any gERD or abd pain now palpitation1 Pt has cardiac p alpitation intermittently. pt denies any chest pain. Pt had benign echo except for right ventricle enlargement. Holter pending. weight loss1 Pt has been losi ng [...] Pt denies any suicidal or homicdial thought GERD Associated sympt oms include back pain [...] not done bone density or mammogram yet anxiety1 Pt has chronic a nxiety and depression. Pt takes zoloft and xanax and doing ok. Pt deneis any suicidal or homicdialt hought. Pt denies any crying spells Anxiety1 Pt has chronic a nxiety anddepression. [...] BM yet. Pt denies any nasusea, vomiting headache1 Pt is seeing chirag whittaker. Pt will try botox. Pt still working with neurology for MS? GERD1 Pt has chornic G ERD and she takes nexium and zantac. Pt denies any GERD symptmos. Pt has chornic nauea, GI will do EGD soon. Pt also will be refered to [facility] for gallbladder polyp. Pt denies any wrosening pain anxiety1 Pt has chronic a nxiety and depression. Pt takes zoloft and xanax and doing ok. Pt denies any worsening symptoms. Pt denies any crying spells HLP Pt has mild HLP. Pt is on low fat and low carb diet. Pt has low D and also elevated B12 anxiety1 Pt has chronic a nxiety and depression. Pt denies any suicidal or homicdial thought Pt takes zoloft and xanax. Pt denies any crying spells. Pt denies any feeling of hopelessness abd pain1 Pt has chronic a bdomianal pain. Pt has chronic nauea, vomiting. Pt is seeing GI and just seen surgeon .Pt has adenomyomatosis but no surgery per surgeon. Pt states that reglan does not help Pt denies any acute pain abdominal pain abd pain Pt recently admi westley to [...] homicidal thought. Pt denies any crying spells anxiety1 Pt has chronic a nxiety and [...] mood is worse. Pt has appointment with ACCOUNT INSTALLER next month headacahe1 Pt has chronic m [...] through GI. Pt denies any worsening pain. postmeno Pt had history o f total hystercomty. Pt takes estrodial. Her ACCOUNT INSTALLER no longer takes her insurance. Pt needs refilled. Pt is trying to find ACCOUNT INSTALLER now. Pt has vasomotor and mood disorder when not taking estrodial headache Associated sympt oms include vomiting. Pertinent negatives include memory loss. Additional information: Pt has chornic headache. Pt c.o throbbing headache. Pt has not done MRI yet. Pt denies any aucte or worsening headache. Imitrex does help. Anxiety The patient pres ents with anxious/fearful thoughts but denies fatigue. The Anxiety is associated with headache and vomiting. The patient denies any nausea, urinary frequency and weight gain. Additional information: Pt has chrnoic anxiety and depression. Pt takes zoloft and buspar and xanax. Pt doing ok. Pt denies any suicdial thought. vomiting Associated sympt oms include back pain, [...] has chronic and vague diffuse abdominal pain. Anxeity Pt has chronic a nxiety and depression. Pt takes zoloft and buspar and xanax. pt states that buspar helps. Pt denies any suicidal thought headache Additional infor mation: Pt has chronic migrane heache. Pt c/o throbbing headache wit nauea, and photophobia. Pt failed topamax, depakote and propranolol. Headache is getting worse. Imitrex helsp. Pt denies any head injury. Anxiety Additional infor mation: Pt has chronic anxiety and depression and severe panic attacks. Pt takes zoloft, buspar and also xanax. Pt doing ok. Pt denies any suicidal thought. headache Additional infor mation: Pt has chronic and frequent migrane headahe Pt notices throbbing pain .Pt denies any head injury. Pt has photophobia and nauea with headache Imtirex does help Pt has headche 3-4 per months. Instructions Date Instruction Additional Infor mation Weight management Related to Rasheeda er disease Quit smoking Related to Liver disease Quit smoking Related to Encou nter [...]
--- OUTSIDE RECORDS SUMMARY | 2024-07-06 16:34 | XMS_ITS | Clinical Summary ---
Author Organization [facility] Address [address] [place] [address] Care Team Providers Care Music Promoter Name Role Phone Fadumo Sundeep P Primary Care Provider + Allergies Active Allergy Reactions Criticality Noted Date Comments Codeine Hives,Itching,Nausea and Vomiting,Swelling Medium 08/28/2010 Morphine Hives,Itching,Unknow n,Sw elling Medium 08/28/2010 nausea Penicillins Hives,Swelling,Unknown Medium 08/28/2010 Swelling of entire body Medications oxyCODONE-acetamino phen 10-325 MG tablet Take 1 tablet by mouth 2 (two) times daily as needed. 5 Active trazodone 100 MG tablet Take 1 tablet (100 mg total) by mouth nightly as needed. 3 9 Active desvenlafaxine ER 100 MG TABLET SR 24 HR 24 hr tablet Take 1 tablet by mouth daily. 3 9 Active Cholecalciferol (VITAMIN D3) 2000 units Tab Take 1 tablet (50 mcg total) by mouth daily. Active methocarbamol 500 MG tablet Take 1 tablet (500 mg total) by mouth 2 (two) times daily as needed. 0 Active busPIRone (BUSPAR) 5 MG tablet Take 1 tablet (5 mg total) by mouth 3 (three) times daily. 2 Active ondansetron (ZOFRAN-ODT) 4 MG disintegrating tabletIndications:N ausea Take 1 tablet (4 mg total) by mouth every 8 (eight) hours as needed for Nausea. 20 tablet 3 Active ARIPiprazole (ABILIFY) 10 MG tablet Take 1 tablet (10 mg total) by mouth daily. 3 Active Active Problems Problem Noted Date Diagnosed Date Major depressive disorder wi th single episode, in full remission 12/22/2022 Closed fracture of distal end of radius 06/06/19 22 Vitamin D deficiency 05/20/2018 Panic disorder 05/17/2018 Overview (05/17/2018): Bipolar Depression 05/17/2018 Pain in joint 01/14/2017 S/P cholecystectomy 07/24/2015 Chronic migraine without aur a without status migrainosus, not intractable 04/05/2015 Lumbago 01/11/2014 DDD (degenerative disc disease), thoracic 2010 Degeneration of lumbar or lumbosacral interverte bral disc 08/29/2010 Resolved Problems Problem Noted Date Diagnosed Date Resolved Date Nausea and vomiting 07/24/2015 05/18/19 19 Demyelinating disease of mona tral nervous system 12/21/2014 05/17/2018 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 05/17/2018 Immunizations Immunization Administration Dates Next Due Flublok (RIV3, Trivalent, 0.5mL) 12/27/2023 Flucelvax 6 Months+ (Prefilled Syringe) 12/12/19,12/08/2018 Fluzone 6 Months+ Quad (0.5 mL Prefilled Syringe ) 12/22/2022 Influenza (Generic) 12/11/2020,11/26/2015 Influenza Adult (Generic) 12/12/2021 PFIZER COVID-19 BIVALENT (12 +) mRNA, LNP-S, PF, 30 MCG/0.3 ML DOSE 02/05/2022 Pneumococcal (Prevnar 20) 02/05/2022 Family History Medical History Relation Comments C-Diff Father Hypertension Father Arthritis Mother Cancer Mother Colon (60s), roma g, Brain tumor Depression Mother Hypertension Mother Relation Status Comments Father Mother Social History Tobacco Use Types Packs/Day Years Used Date Smoking Tobacco: Every Day Cigarettes 1 34 Started: 08/18/1988; Last attempted to quit: 08/18/2022 Passive Smoke Exposure: Current Smokeless Tobacco: Never Tobacco Cessation:Ready to Q uit: No; Counseling Given: Yes Comments:Provider to drug and 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 counsellor not a smoker Alcohol Use Standard Drinks/Week Comments No 0 (1 standard drink = 0.6 oz pur e alcohol) AUDIT-C Answer Date Recorded Frequency of Alcohol Consumption Never 05/17/2018 Average Number of Drinks Not on file 019 Frequency of Binge Drinking Not on file 05/07 PHQ-2 Answer Date Recorded Patient Health Questionnaire-2 Score 0 01/14/2024 Comments No Sex and Gender Information Value Date Recorded Sex Assigned at Not on file Legal Sex Female 6:34 PM CDT Gender Identity Not on file Sexual Orientation Not on file Last Filed Vital Signs Vital Sign Reading Time Taken Comments Blood Pressure 112/70 01/14/2024 1:33 PM BANANA HANDLER Pulse 74 01/14/2024 1:33 PM BANANA HANDLER Temperature 36.3 C (97.3 F) 01/14/2024 1:33 PM BANANA HANDLER Respiratory Rate 18 01/14/2024 1:33 PM BANANA HANDLER Oxygen Saturation 97% 01/14/2024 1:33 PM BANANA HANDLER Inhaled Oxygen Concentration - - Weight 69.1 kg (152 lb 6.4 oz) 01/14/2024 1:33 P M BANANA HANDLER Height 160 cm (5' 3 ) 01/14/2024 1:33 PM BANANA HANDLER Body Mass Index 27 01/14/2024 1:33 PM BANANA HANDLER Plan of Treatment Health Maintenance Due Date Last Done Comments Hepatitis B Vaccines (1 of 3 - 19+ 3-dose series) 11/07/1986 Lung Cancer Screening 02/17/2023 02/17/2022 Mammogram Screening 11/01/2023 10/31/2022, 07/11/2021, 07/11/2021 PHQ-2 (Physician [place]) 03/09/2024 01/14/2024 Colorectal Cancer Screening Colonoscopy (10 Years) 12/26/2024 12/26/2014 Annual Physical 01/13/2025 01/14/2024, 12/07, 02/05/2022, Additional history exists DTaP, Tdap and Td Vaccines (1 - Tdap) 01/13/2025 Postponed from 11/07/1986 (Going to Outside Clinic) Zoster Vaccines (1 of 2) 01/13/2025 Pos tponed from 11/07/2017 (Going to Outside Clinic) COVID-19 Vaccine (3 - 2023-25 season) 2074 02/05/2022, 05/17/2020 Postponed from 2023 (Patient Refused) Hepatitis C Completed 12/21/2020 Pneumococcal Vaccine: 50+ Years Completed 02/05/2022 Meningococcal B Vaccine Aged Out No l onger eligible based on patient's age to complete this topic Meningococcal Vaccine Aged Out No korin aleksandr eligible based on patient's age to complete this topic RSV Immunizations Under 20 Months Aged Out No longer eligible based on patient's age to complete this topic Procedures Procedure Name Priority Date/Time Associated Diagnosis Comments MAMMOGRAM GENERIC (SCAN ORDER) 10/31/2022 CT LUNG SCREENING Routine 02/17/2022 2:4 5 PM BANANA HANDLER Nicotine dependence, cigarettes, uncomplicated HEPATITIS C ANTIBODY Routine 12/21/2020 8:46 AM CDT Need for hepatitis C screening test COLONOSCOPY/EGD GENERIC (SCAN ORDER) Routine 12/26/2014 from Last 3 Months or Most Recently Relevant to Health Maintenance Results * MAMMOGRAM GENERIC (10/31/2022) Anatomical Region Laterality Modality Other 10/31/2022 [facility] Scanned SCANNING Final Resu lt * CT LUNG SCREENING (02/17/2022 2:45 PM BANANA HANDLER) Anatomical Region Laterality Modality Chest Computed Tomogra phy 02/19/2022 1:03 PM BANANA HANDLER Impressions 02/19/2022 1:06 PM BANANA HANDLER =====Impression:===== LUNG-RADS Category/Recommendation: Category 2 /Continue annual screening with LDCT in 12 months. Suggest follow up exam on or around 2023-02-17. LUNG-RADS category S: Negative, no new/unknown potentially significant incidental findings requiring urgent additional evaluation. Other Incidental Findings: As above. Thank you for choosing the [facility]'s Lung Screening Program. Ordered By: SUNDEEP BERRIOS Interpreted By: Polo Byrd MD, 02/19/2022 1:03 PM Narrative 02/19/2022 1:06 PM BANANA HANDLER Examination: Lung Screening Low-Dose Ct Thorax Without Contrast Exam date/time: 02/17/2022 2:35 PM Clinical history: Asymptomatic patient meeting NCCN high-risk criteria for lung screening. * 56 years * 30 pack years or greater * Current smoker of have quit smoking within the last 15 years. Comparison: None. Technique: Noncontrast, helical, low-dose CT (LDCT) chest per standard departmental protocol. A dose lowering technique was used for this procedure, which may include, but is not limited to, dose reduction technique, automated exposure control, the use of iterative reconstruction, and ALARA (As Low As Reasonably Achievable) / Image Gently techniques. FINDINGS: Lung Screening Specific (LUNG-RADS): Nodule 1: 2.6 mm, Solid nodule, Left Upper Lobe Image slice# 92 Nodule 2: 2.2 mm, Solid nodule, Right Upper Lobe Image slice# 36 Nodule 3: 2.0 mm, Solid nodule, Right Upper Lobe Image slice# 48 Potentially Significant Incidentals (LUNG-RADS category S): None. Additional Findings: Minimal atelectasis. Minimal pericardial fluid. No mediastinal or hilar lymphadenopathy. Moderate hiatal hernia. Small retained fluid in the mid to distal esophagus. Surgical changes of prior Whitney-en-Y gastric bypass. Prior cholecystectomy. Degenerative changes are noted. Procedure Note Polo Byrd MD - 02/19/2022 Examination: Lung Screening Low-Dose Ct Thorax Without Contrast Exam date/time: 02/17/2022 2:35 PM Clinical history: Asymptomatic patient meeting NCCN high-risk criteria forlung screening. * 56 years * 30 pack years or greater * Current smoker of have quit smoking within the last 15 years. Comparison: None. Technique: Noncontrast, helical, low-dose CT (LDCT) chest per standarddepartmental protocol. A dose lowering technique was used for thisprocedure, which may include, but is not limited to, dose reductiontechnique, automated exposure control, the use of iterativereconstruction, and ALARA (As Low As Reasonably Achievable) / Image Gentlytechniques. FINDINGS: Lung Screening Specific (LUNG-RADS): Nodule 1: 2.6 mm, Solid nodule, Left Upper Lobe Image slice# 92 Nodule 2: 2.2 mm, Solid nodule, Right Upper Lobe Image slice# 36 Nodule 3: 2.0 mm, Solid nodule, Right Upper Lobe Image slice# 48 Potentially Significant Incidentals (LUNG-RADS category S): None. Additional Findings: Minimal atelectasis. Minimal pericardial fluid. Nomediastinal or hilar lymphadenopathy. Moderate hiatal hernia. Smallretained fluid in the mid to distal esophagus. Surgical changes of lddhcVhyn-ag-N gastric bypass. Prior cholecystectomy. Degenerative changes arenoted. =====Impression:===== LUNG-RADS Category/Recommendation: Category 2 /Continue annual screeningwith LDCT in 12 months. Suggest follow up exam on or around 2023-02-17. LUNG-RADS category S: Negative, no new/unknown potentially significantincidental findings requiring urgent additional evaluation. Other Incidental Findings: As above. Thank you for choosing the [facility] Lung ScreeningProgram. Ordered By: SUNDEEP BERRIOS Interpreted By: Polo Byrd MD, 02/19/2022 1:03 PM us Sundeep Berrios DO CT Final Re sult * HEPATITIS C ANTIBODY (12/21/2020 8:46 AM CDT) HEPATITIS C AB 0.1 0.0 - 0.9 s/co ratio [facility] 1 Comment: Negative: < 0.8 Indeterminate: 0.8 - 0.9 Positive: > 0.9 The CDC recommends that a positive HCV antibody result be followed up with a HCV Nucleic Acid Amplification test (500245). 12/21/2020 8:46 AM CDT 12/21/2020 Narrative [facility] - 12/22/2020 9:09 AM CDT Performed at: [address] [place] [id number] Creative Art Director: Hank Langley PhD, Phone: [phone] us Sundeep Berrios DO LABORATORY Final Re sult [facility] [address] [place] [address] [facility] 1 * COLONOSCOPY/EGD (12/26/2014) us Documents Scanned SCANNING Final Result [facility] from Last 3 Months or Most Recently Relevant to Health Maintenance Insurance [facility] Care Teams Music Promoter Relationship Specialty Start Date End Date Sundeep Berrios DO [address] [place] [id number] PCP - General FAMILY PRACTICE 05/04/18
--- OUTSIDE RECORDS SUMMARY | 2024-07-06 16:34 | XMS_ITS | Clinical Summary ---
Author Organization [facility] Address [address] [place] [address] Care Team Providers Care Gas Welder Name Role Phone Barrett Bañuelos MD Primary Care Provider [phone] Allergies Active Allergy Reactions Criticality Noted Date Comments Codeine Hives Medium 01/14/2017 Morphine Hives Medium 01/14/2017 Penicillins Hives Medium 01/14/2017 Medications ARIPiprazole (ABILIFY) 15 mg tablet Take 15 mg by mouth daily. Active clonazePAM (KlonoPIN) 2 mg tablet Take 2 mg by mouth 2 (two) times a day as needed for seizures. Active FLUoxetine (PROzac) 20 mg tablet Take 20 mg by mouth daily. Active oxyCODONE-acetam inophen (PERCOCET) 10-325 mg per tabletIndication s:Pain Take 1 tablet by mouth every 6 (six) hours as needed. Active fentaNYL (DURAGESIC) 25 mcg/hr Place 1 patch on the skin every third day. Active Active Problems Problem Noted Date Diagnosed Date Joint pain 01/14/2017 Lumbago 01/11/2014 Medical History Medical History Date Comments Anxiety Epilepsy (HCC) GERD (gastroesophageal reflux disease) Hyperlipidemia Colon polyp Bipolar affective (HCC) Infestation by Sarcoptes scabiei jamee hominis Family History Medical History Relation Name Comments Colon cancer Mother Lung cancer Mother Relation Name Status Comments Mother Social History Tobacco Use Types Packs/Day Years Used Date Smoking Tobacco: Every Day Smokeless Tobacco: Current Personal Safety Answer Date Recorded Getting School Help Needed Not on file 05/22 Comments Unknown Sex and Gender Information Value Date Recorded Sex Assigned at Not on file Legal Sex Female 6:54 PM [employer] Gender Identity Not on file Sexual Orientation Not on file Obstetrics History Last Filed Vital Signs Vital Sign Reading Time Taken Comments Blood Pressure 92/60 01/14/2017 1:24 PM [employer] Pulse 75 01/14/2017 1:24 PM [employer] Temperature 36.8 C (98.2 F) 01/14/2017 1:24 PM [employer] Respiratory Rate 16 01/14/2017 1:24 PM [employer] Oxygen Saturation 94% 01/14/2017 1:24 PM [employer] Inhaled Oxygen Concentration - - Weight 64.4 kg (142 lb) 01/14/2017 1:24 PM [employer] Height 157.5 cm (5' 2 ) 01/14/2017 1:24 PM [employer] Body Mass Index 25.97 01/14/2017 1:24 PM [employer] Plan of Treatment Not on file Insurance [employer] MEDICARE ADVANTAGE Care Teams Gas Welder Relationship Specialty Start Date End Date Barrett Bañuelos MD PCP - General Family Medicine 12/17/16
--- OUTSIDE RECORDS SUMMARY | 2024-07-06 16:34 | XMS_ITS | Encounter Summary ---
Author Organization [facility] Address [address] [place] [address] Care Team Providers Care Freight Solicitor Name Role Phone Sundeep Thorne DO Primary Care Provider + Encounter Details Date Type Department Care Team (Late st Contact Info) Description 01/06/2023 LogicLadder Message Enc [facility] Family & Internal Medicine [facility] [address] [place] [address] Sundeep Thorne DO [address] [place] [address] Mammogram Results Social History Tobacco Use Types Packs/Day Years Used Date Smoking Tobacco: Former Cigarettes 1 34 0 08/18/1988 - 08/18/2022 Passive Smoke Exposure: Current Smokeless Tobacco: Never Comments:Provider to corrections counselor Alcohol Use Standard Drinks/Week Comments No 0 (1 standard drink = 0.6 oz pur e alcohol) AUDIT-C Answer Date Recorded Frequency of Alcohol Consumption Never 05/17/2018 Average Number of Drinks Not on file 019 Frequency of Binge Drinking Not on file 05/07 PHQ-2 Answer Date Recorded Patient Health Questionnaire-2 Score 0 05/01/2022 Comments No Sex and Gender Information Value Date Recorded Sex Assigned at Not on file Legal Sex Female 6:34 PM CDT Gender Identity Not on file Sexual Orientation Not on file documented as of this encounter Plan of Treatment Not on file documented as of this encounter Visit Diagnoses Not on filedocumented in this encounter Additional Health Concerns Assessment Noted Time PHQ-9 Depression Total Score: 0 11/15/19 21 11:03 AM CDT documented as of this encounter Care Teams Freight Solicitor Relationship Specialty Start Date End Date Sundeep Thorne DO [address] [place] [address] PCP - General FAMILY PRACTICE 05/04/18 documented as of this encounter
--- OUTSIDE RECORDS SUMMARY | 2024-07-06 16:34 | XMS_ITS | Encounter Summary ---
Author Organization [facility] Address [address] [place] [address] Care Team Providers Care Fitness Director Name Role Phone Sunny Pete MD Unavailable [phone] Steve Ramos MD Unavailable [phone] Barrett Bañuelos MD Primary Care Provider [phone] Carlos Yu MD Primary Care Provider [phone] Barrett Bañuelos MD Primary Care Provider [phone] Encounter Details Date Type Department Care Team (Late st Contact Info) Description 08/18/2011 [facility] Outpatient Visit [facility]TERNAL [place] [address] [id number] Social History Tobacco Use Types Packs/Day Years Used Date Smoking Tobacco: Former Cigarettes 1 27 0 07/07/1984 - 07/08/2011 Smokeless Tobacco: Never Alcohol Use Standard Drinks/Week Comments No 0 (1 standard drink = 0.6 oz pur e alcohol) Comments No Sex and Gender Information Value Date Recorded Sex Assigned at Not on file Legal Sex Female 11:54 AM TURNING SANDER TENDER Gender Identity Not on file Sexual Orientation Not on file Occupation Industry Job Start Date Job End Date NOT EMPLOYED Not on file Not on file Not on file documented as of this encounter Plan of Treatment Not on file documented as of this encounter Visit Diagnoses Not on filedocumented in this encounter Care Teams Fitness Director Relationship Specialty Start Date End Date Barrett Bañuelos MD [address] [place] [address] PCP - General 08/14/11 08/19/11 Carlos Yu MD [address] [place] [id number] PCP - General 08/20/11 08/24/11 Barrett Bañuelos MD [address] [place] [address] PCP - General 08/25/11 Sunny Pete MD Internal Medicine 08/28/10 Steve Ramos MD Referring Physician Physical Medicine and Rehabilitation 08/28/10 documented as of this encounter
--- OUTSIDE RECORDS SUMMARY | 2024-07-06 16:34 | XMS_ITS | Clinical Summary ---
Author Organization [facility] Address [address] [place] [address] Phone Care Team Providers Care Mill Work Name Role Phone Unavailable Primary Care Provider Unavailabl e Allergies Active Allergy Reactions Criticality Noted Date Comments Codeine Swelling Low 05/27/2021 Morphine Swelling Low 05/27/2021 Penicillins Swelling Low 05/27/2021 Social History Tobacco Use Types Packs/Day Years Used Date Smoking Tobacco: Never Assessed Comments Unknown Sex and Gender Information Value Date Recorded Sex Assigned at Not on file Legal Sex Female 8:32 PM CDT Gender Identity Not on file Sexual Orientation Not on file Last Filed Vital Signs Vital Sign Reading Time Taken Comments Blood Pressure 112/71 05/27/2021 9:11 PM CDT Pulse 84 05/27/2021 9:11 PM CDT Temperature 37.1 C (98.7 F) 05/27/2021 9:11 PM CDT Respiratory Rate 18 05/27/2021 9:11 PM CDT Oxygen Saturation 95% 05/27/2021 9:11 PM CDT Inhaled Oxygen Concentration - - Weight 76.2 kg (168 lb) 05/27/2021 9:11 PM CDT Height 160 cm (5' 3 ) 05/27/2021 9:11 PM CDT Body Mass Index 29.76 05/27/2021 9:11 PM CDT Plan of Treatment Health Maintenance Due Date Last Done Comments DTAP/TDAP/TD VACCINES (1 - Tdap) 11/07/1986 HEPATITIS B VACCINES (1 of 3 - 19+ 3-dose series) 03/1986 HPV/Cotest (21-29) 11/07/1988 CERVICAL CANCER SCREENING 11/07/1997 HPV/Cotest (30-65) 11/07/1997 PAP SMEAR 11/07/1997 BREAST CANCER SCREENING 2007 COLORECTAL SCREENING 11/07/2012 Colorectal Cancer Screening 11/07/2012 FIT-DNA Q 3 years 11/07/2012 FIT/FOBT Q 1 year 11/07/2012 Flex Sig/CT Colonography Q 5 years 11/07/2012 ZOSTER VACCINE (1 of 2) 11/07/2017 INFLUENZA VACCINE (#1) 2023
--- OUTSIDE RECORDS SUMMARY | 2024-07-06 16:34 | XMS_ITS | Referral Summary ---
Author Organization [facility] Address [address] [place] [address] Care Team Providers Care Physician Ophthalmologist Name Role Phone Barrett Bañuelos MD Primary Care Provider + [phone] Allergies Active Allergy Reactions Criticality Noted Date [...] Diagnosed Date Joint pain 01/14/2017 Lumbago 01/11/2014 Social History Tobacco Use Types Packs/Day Years Used Date Smoking Tobacco: Every Day Smokeless Tobacco: Current Personal Safety Answer Date Recorded Getting School Help Needed Not on file 05/22 Comments Unknown Sex and Gender Information Value Date Recorded Sex Assigned at Not on file Legal Sex Female 6:54 PM FUEL YARD OPERATOR Gender Identity Not on file Sexual Orientation Not on file Last Filed Vital Signs Vital Sign Reading Time Taken Comments Blood Pressure 92/60 01/14/2017 1:24 PM FUEL YARD OPERATOR Pulse 75 01/14/2017 1:24 PM FUEL YARD OPERATOR Temperature 36.8 C (98.2 F) 01/14/2017 1:24 PM FUEL YARD OPERATOR Respiratory Rate 16 01/14/2017 1:24 PM FUEL YARD OPERATOR Oxygen Saturation 94% 01/14/2017 1:24 PM FUEL YARD OPERATOR Inhaled Oxygen Concentration - - Weight 64.4 kg (142 lb) 01/14/2017 1:24 PM FUEL YARD OPERATOR Height 157.5 cm (5' 2 ) 01/14/2017 1:24 PM FUEL YARD OPERATOR Body Mass Index 25.97 01/14/2017 1:24 PM FUEL YARD OPERATOR Plan of Treatment Not on file Insurance IDPA [facility] MEDICARE ADVANTAGE [facility] MEDICARE ADVANTAGE Care Teams Physician Ophthalmologist Relationship Specialty Start Date End Date Barrett Bañuelos MD PCP - General Family Medicine 12/17/16
--- OUTSIDE RECORDS SUMMARY | 2024-07-06 16:34 | XMS_ITS | CONTINUITY OF CARE DOCUMENT ---
Author Name demi simms Address Unknown Organization [facility] Address [address] [facility] [address] [facility] [place] [address] Phone [phone] Care Team Providers Care Wildlife Biology Technician Name Role Phone Octavio MENA, Elli Unavailable FABIOLA MENA, MIMI Unavailable [phone] FABIOLA MENA, MIMI Unavailable [phone] PROBLEMS Condition Status Date Provider Notes Palpitations active Koby Hansen INSURANCE PROVIDERS Payer name Policy type / Coverage type [place] [employer] [facility] Medicaid 2 [id number] [place] MEDICARE Medicare [id number] TREATMENT PLAN Date Name Holter Monitor 24 Hr
--- OUTSIDE RECORDS SUMMARY | 2024-07-06 16:34 | XMS_ITS | Encounter Summary ---
Author Organization [facility] Address [facility] [place] [address] Care Team Providers Care Diamond Cleaner Name Role Phone Sundeep Thorne DO Primary Care Provider + Sundeep Thorne DO Unavailable [phone] Encounter Details Date Type Department Care Team (Late st Contact Info) Description 01/05/2020 Gojit Message Enc [facility] Medical Group Family & Internal Medicine [facility] [address] [place] [address] Sundeep Thorne DO [address] [place] [address] Medication Questions Social History Tobacco Use Types Packs/Day Years Used Date Smoking Tobacco: Every Day Cigarettes 1.5 34 Smokeless Tobacco: Never Alcohol Use Standard Drinks/Week Comments No 0 (1 standard drink = 0.6 oz pur e alcohol) AUDIT-C Answer Date Recorded Frequency of Alcohol Consumption Never 05/17/2018 Average Number of Drinks Not on file 019 Frequency of Binge Drinking Not on file 05/07 PHQ-2 Answer Date Recorded PHQ-2 Score 2 06/06/2018 Comments Unknown Sex and Gender Information Value Date Recorded Sex Assigned at Not on file Legal Sex Female 6:34 PM CDT Gender Identity Not on file Sexual Orientation Not on file COVID-19 Exposure Response Date Recorded In the last month, have you been in contact with someone who was confirmed or suspected to have Coronavirus / COVID-19? 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
--- OUTSIDE RECORDS SUMMARY | 2024-07-06 16:34 | XMS_ITS | Encounter Summary ---
Author Organization [facility] Address [address] [place] [address] Care Team Providers Care Bag Machine Operator Name Role Phone Sundeep Thorne DO Primary Care Provider + Encounter Details Date Type Department Care Team (Late st Contact Info) Description 02/09/2024 IMayGou Message Enc [facility] Medical Group Family & Internal Medicine [facility] [address] [place] [address] Sundeep Thorne DO [address] [place] [address] LDCT chest results Social History Tobacco Use Types Packs/Day Years Used Date Smoking Tobacco: Every Day Cigarettes 1 34 Started: 08/18/1988; Last attempted to quit: 08/18/2022 Passive Smoke Exposure: Current Smokeless Tobacco: Never 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
--- OUTSIDE RECORDS SUMMARY | 2024-07-06 16:34 | XMS_ITS | Clinical Summary ---
Author Organization [facility] Address [address] [place] [address] Care Team Providers Care Casino Change Attendant Name Role Phone Sunny Pete MD Unavailable [phone] Steve Ramos MD Unavailable [phone] Barrett Bañuelos MD Primary Care Provider [phone] Source Comments [facility],non-owned Affiliates and Associated Physician Practices is amultiple site organization consisting of ambulatory clinics and hospital sitesin [place], [place], [place] and [place]. This disclosure is being madepursuant to the Care Everywhere program and may not contain all information available regarding this patient. Last updated 17.[facility] Allergies Active Allergy Reactions Criticality Noted Date Comments Codeine Itching,Nausea and/o r Vomiting 08/28/2010 Morphine Itching 08/28/2010 nausea Penicillins Swelling 08/28/2010 Swelling of entire body Medications * Be aware that medications may not be up to date on this document. Alwaysverify current medications with the patient. estradiol (ESTRACE) 1 MG tablet Take 1 mg by mouth once daily Active butalbital-acet aminophen-caffe ine (FIORICET) 50-325-40 MG tablet TAKE 1 TABLET BY MOUTH EVERY 4 HOURS NEEDED FOR HEADACHE OR MIGRAINE 30 Tab 0 5 Active Additional Information Patient not taking.Reported on 04/05/2015 oxyCODONE-aceta minophen (PERCOCET) 10-325 MG tablet Take 1 Tab by mouth every 4 hours Active fentaNYL (DURAGESIC) 25 MCG/HR patch Apply 1 Patch to skin every 3 days Active carisoprodol (SOMA) 350 MG tablet Take 350 mg by mouth 3 times daily Active ARIPiprazole (ABILIFY) 15 MG tablet Take 7.5 mg by mouth once daily Active ALPRAZolam (XANAX) 2 MG tablet Take 2 mg by mouth 3 times daily Active pregabalin (LYRICA) 150 MG capsule Take 150 mg by mouth once daily Active busPIRone (BUSPAR) 15 MG tablet Take 15 mg by mouth 3 times daily Active Active Problems Problem Noted Date Diagnosed Date Intractable chronic migraine without aura and without status migrainosus 04/05/2015 Demyelinating disease of central nervous system 12/21/2014 Stroke 12/21/2014 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 Degeneration of lumbar or lumbosacral interverte bral disc 08/29/2010 DDD (degenerative disc disease), thoracic 2010 Immunizations Immunization Administration Dates Next Due INFLUENZA VACCINE 11/26/2015 Family History Medical History Relation Name Comments Hypertension Father Cancer Mother Migraine Mother Thyroid Disease Mother Relation Name Status Comments Brother Father Alive Mother Alive Sister Social History Tobacco Use Types Packs/Day Years Used Date Smoking Tobacco: Every Day Cigarettes 1 27 Started: 07/07/1984; Last attempted to quit: 07/08/2011 Smokeless Tobacco: Former Tobacco Cessation:Counseling Given: Yes Alcohol Use Standard Drinks/Week Comments No 0 (1 standard drink = 0.6 oz pur e alcohol) Comments No Sex and Gender Information Value Date Recorded Sex Assigned at Not on file Legal Sex Female 11:54 AM EARLY CHILDHOOD Gender Identity Not on file Sexual Orientation Not on file Occupation Industry Job Start Date Job End Date Disabled Not on file Not on file Not on file Last Filed Vital Signs Vital Sign Reading Time Taken Comments Blood Pressure 88/60 01/28/2016 1:01 PM EARLY CHILDHOOD Pulse 68 01/28/2016 1:01 PM EARLY CHILDHOOD Temperature 36.4 C (97.6 F) 08/26/2011 8:00 AM CDT Respiratory Rate 12 01/28/2016 1:01 PM EARLY CHILDHOOD Oxygen Saturation 96% 08/26/2011 8:00 AM CDT Inhaled Oxygen Concentration - - Weight 53.1 kg (117 lb) 01/28/2016 1:01 PM EARLY CHILDHOOD Height 161.3 cm (5' 3.5 ) 01/28/2016 1:01 PM EARLY CHILDHOOD Body Mass Index 20.4 01/28/2016 1:01 PM EARLY CHILDHOOD Plan of Treatment Health Maintenance Due Date Last Done Comments COLOGUARD (AGES 45-75) - COL ON CA SCREENING 1967 COLON MONITORING 1967 COLONOSCOPY - COLON CA SCREENING 1967 CT COLONOGRAPHY - COLON CA SCREENING 1967 Colorectal Cancer Screening 1967 FIT - COLON CA SCREENING 1967 FLEX SIG - COLON CA SCREENING 1967 LIPID TESTING 1967 MAMMOGRAM 1967 HIV SCREENING 11/07/1982 HEPATITIS C SCREENING 11/03/1985 DTAP/TDAP/TD VACCINES (1 - Tdap) 11/07/1986 HEPATITIS B VACCINE (1 of 3 - 19+ 3-dose series) 11/07/1986 PNEUMOCOCCAL VACCINE 50+ (1 of 2 - PCV) 11/07/1986 ZOSTER VACCINE (1 of 2) 11/07/2017 COVID-19 VACCINE (1 - 2023-2 5 season) 2023 DEPRESSION SCREENING 03/09/2024 INFLUENZA VACCINE (Season Ended) 2024 11/26/19 16 HIB VACCINE Aged Out No longer eligi ble based on patient's age to complete this topic HPV VACCINE Aged Out No longer eligi ble based on patient's age to complete this topic MENINGOCOCCAL (Group B) VACC INE SHARED DECISION-MAKING Aged Out No longer eligibl e based on patient's age to complete this topic MENINGOCOCCAL GROUPS A/C/Y/W VACCINE Aged Out No longer eligible b ased on patient's age to complete this topic Insurance MEDICARE Advance Directives * FULL RESUSCITATION (Latest Code Status on File) Date Activated Date Inactivated Comments 08/25/2011 4:51 PM 08/26/2011 11:40 PM Care Teams Casino Change Attendant Relationship Specialty Start Date End Date Barrett Bañuelos MD [address] [place] [phone] PCP - General 08/25/11 Sunny Pete MD Internal Medicine 08/28/10 Steve Ramos MD Referring Physician Physical Medicine and Rehabilitation 08/28/10
== END 2024-07-06 15:59 | disposition home or self-care (01) ==
PROVIDERS: PCP Student in an Organized Health Care Education/Training Program; Visit Provider Pain Medicine Interventional Pain Medicine
DX: M54.16 Radiculopathy, lumbar region (principal); M51.369 Other intervertebral disc degeneration, lumbar region without mention of lumbar back pain or lower extremity pain; Z98.1 Arthrodesis status
CPT/HCPCS: 72100

== ENCOUNTER 2024-07-08 14:12 | Outpatient (CLI) | payer MEDICARE, SELFPAY ==
--- NOTE | ~2024-07-08 | MM_ITS ---
EXAMINATION: MM screening cristina BI w elaina HISTORY: Screening TECHNIQUE: Craniocaudal and mediolateral oblique 3-D tomosynthesis images were obtained and synthetic 2-D images were generated. CAD analysis was submitted and interpreted. COMPARISON: 12/10/2016 BREAST PARENCHYMAL COMPOSITION: Not dense: There are scattered areas of fibroglandular density. FINDINGS: There is a possible subareolar mass of the right breast. The left breast is stable without evidence for malignancy. IMPRESSION: 1. Possible subareolar mass of the right breast. 2. Additional mammographic views and possible breast ultrasound are recommended. BI-RADS Category 0: Incomplete: Needs additional imaging evaluation. Reviewed, dictated and finalized at location A. IMPRESSION: 1. Possible subareolar mass of the right breast. 2. Additional mammographic views and possible breast ultrasound are recommended . BI-RADS Category 0: Incomplete: Needs additional imaging evaluation.
--- OUTSIDE RECORDS SUMMARY | 2024-07-09 14:19 | XMS_ITS | Clinical Summary ---
Author Organization [facility] Address [address] [place] [address] Care Team Providers Care Sleeve Tailor Name Role Phone Sunny Pete MD Unavailable [phone] Steve Ramos MD Unavailable [phone] Barrett Bañuelos MD Primary Care Provider [phone] Source Comments [facility],non-owned Affiliates and Associated Physician Practices is amultiple site organization consisting of ambulatory clinics and hospital sitesin [place], [place], [place] and [place]. This disclosure is being madepursuant to the Care Everywhere program and may not contain all information available regarding this patient. Last updated 17.[facility] Allergies Active Allergy Reactions Criticality Noted Date [...] on file Legal Sex Female 11:54 AM GEOLOGIST PETROLEUM Gender Identity Not on file Sexual Orientation Not on file Occupation Industry Job Start Date Job End Date Disabled Not on file Not on file Not on file Last Filed Vital Signs Vital Sign Reading Time Taken Comments Blood Pressure 88/60 01/28/2016 1:01 PM GEOLOGIST PETROLEUM Pulse 68 01/28/2016 1:01 PM GEOLOGIST PETROLEUM Temperature 36.4 C (97.6 F) 08/26/2011 8:00 AM CDT Respiratory Rate 12 01/28/2016 1:01 PM GEOLOGIST PETROLEUM Oxygen Saturation 96% 08/26/2011 8:00 AM CDT Inhaled Oxygen Concentration - - Weight 53.1 kg (117 lb) 01/28/2016 1:01 PM GEOLOGIST PETROLEUM Height 161.3 cm (5' 3.5 ) 01/28/2016 1:01 PM GEOLOGIST PETROLEUM Body Mass Index 20.4 01/28/2016 1:01 PM GEOLOGIST PETROLEUM Plan of Treatment Health Maintenance Due Date [...] 4:51 PM 08/26/2011 11:40 PM Care Teams Sleeve Tailor Relationship Specialty Start Date End Date Barrett Bañuelos MD [address] [place] [phone] PCP - General 08/25/11 Sunny Pete MD Internal Medicine 08/28/10 Steve Ramos MD Referring Physician Physical Medicine and Rehabilitation 08/28/10
--- OUTSIDE RECORDS SUMMARY | 2024-07-09 14:19 | XMS_ITS | Encounter Summary ---
Author Organization [facility] Address [address] [facility] [place] [address] Care Team Providers Care Sound Editor Name Role Phone Sunny Pete MD Unavailable [phone] Steve Ramos MD Unavailable [phone] Barrett Bañuelos MD Primary Care Provider [phone] Carlos Yu MD Primary Care Provider [phone] Barrett Bañuelos MD Primary Care Provider [phone] Encounter Details Date Type Department Care Team (Late st Contact Info) Description 08/18/2011 [facility] Outpatient Visit EXTERNAL NON[facility] [place] [address] [id number] Social History Tobacco Use Types Packs/Day Years Used Date Smoking Tobacco: Former Cigarettes 1 27 0 07/07/1984 - 07/08/2011 Smokeless Tobacco: Never Alcohol Use Standard Drinks/Week Comments No 0 (1 standard drink = 0.6 oz pur e alcohol) Comments No Sex and Gender Information Value Date Recorded Sex Assigned at Not on file 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 Gender Identity Not on file Sexual Orientation Not on file Occupation Industry Job Start Date Job End Date NOT EMPLOYED Not on file Not on file Not on file documented as of this encounter Plan of Treatment Not on file documented as of this encounter Visit Diagnoses Not on filedocumented in this encounter Care Teams Sound Editor Relationship Specialty Start Date End Date Barrett Bañuelos MD [address] [place] [address] PCP - General 08/14/11 08/19/11 Carlos Yu MD [address] [place] [phone] PCP - General 08/20/11 08/24/11 Barrett Bañuelos MD [address] [place] [address] PCP - General 08/25/11 Sunny Pete MD Internal Medicine 08/28/10 Steve Ramos MD Referring Physician Physical Medicine and Rehabilitation 08/28/10 documented as of this encounter
--- OUTSIDE RECORDS SUMMARY | 2024-07-09 14:19 | XMS_ITS | Clinical Summary ---
Author Organization [facility] Address [address] [place] [address] Care Team Providers Care Ic Designer Standard Cells Name Role Phone Fadumo Sundeep P Primary [...] uit: No; Counseling Given: Yes Comments:Provider to residential treatment counselor not a smoker Alcohol Use Standard Drinks/Week [...] Comments Blood Pressure 112/70 01/14/2024 1:33 PM HOUSE STEWARD/STEWARDESS Pulse 74 01/14/2024 1:33 PM HOUSE STEWARD/STEWARDESS Temperature 36.3 C (97.3 F) 01/14/2024 1:33 PM HOUSE STEWARD/STEWARDESS Respiratory Rate 18 01/14/2024 1:33 PM HOUSE STEWARD/STEWARDESS Oxygen Saturation 97% 01/14/2024 1:33 PM HOUSE STEWARD/STEWARDESS Inhaled Oxygen Concentration - - Weight 69.1 kg (152 lb 6.4 oz) 01/14/2024 1:33 P M HOUSE STEWARD/STEWARDESS Height 160 cm (5' 3 ) 01/14/2024 1:33 PM HOUSE STEWARD/STEWARDESS Body Mass Index 27 01/14/2024 1:33 PM HOUSE STEWARD/STEWARDESS Plan of Treatment Health Maintenance Due Date Last Done Comments Hepatitis B Vaccines (1 of 3 - 19+ 3-dose series) 11/07/1986 Lung Cancer Screening 02/17/2023 02/17/2022 Mammogram Screening 11/01/2023 10/31/2022, 07/11/2021, 07/11/2021 PHQ-2 (Physician [facility]) 03/09/2024 01/14/2024 Colorectal Cancer Screening Colonoscopy (10 [...] LUNG SCREENING Routine 02/17/2022 2:4 5 PM HOUSE STEWARD/STEWARDESS Nicotine dependence, cigarettes, uncomplicated HEPATITIS C ANTIBODY Routine 12/21/2020 8:46 AM CDT Need for hepatitis C screening test COLONOSCOPY/EGD GENERIC (SCAN ORDER) Routine 12/26/2014 from Last 3 Months or Most Recently Relevant to Health Maintenance Results * MAMMOGRAM GENERIC (10/31/2022) Anatomical Region Laterality Modality Other 10/31/2022 [facility] Scanned SCANNING Final Resu lt * CT LUNG SCREENING (02/17/2022 2:45 PM HOUSE STEWARD/STEWARDESS) Anatomical Region Laterality Modality Chest Computed Tomogra phy 02/19/2022 1:03 PM HOUSE STEWARD/STEWARDESS Impressions 02/19/2022 1:06 PM HOUSE STEWARD/STEWARDESS =====Impression:===== LUNG-RADS Category/Recommendation: Category 2 /Continue annual screening with LDCT in 12 months. Suggest follow up exam on or around 2023-02-17. LUNG-RADS category S: Negative, no new/unknown potentially significant incidental findings requiring urgent additional evaluation. Other Incidental Findings: As above. Thank you for choosing the [facility]'s Lung Screening Program. Ordered By: SUNDEEP BERRIOS Interpreted By: Polo Byrd MD, 02/19/2022 1:03 PM Narrative 02/19/2022 1:06 PM HOUSE STEWARD/STEWARDESS Examination: Lung Screening Low-Dose Ct Thorax Without [...] mid to distal esophagus. Surgical changes of [id number] gastric bypass. Prior cholecystectomy. Degenerative changes arenoted. =====Impression:===== LUNG-RADS Category/Recommendation: Category 2 /Continue annual screeningwith LDCT in 12 months. Suggest follow up exam on or around 2023-02-17. LUNG-RADS category S: Negative, no new/unknown potentially significantincidental findings requiring urgent additional evaluation. Other Incidental Findings: As above. Thank you for choosing the [facility]'s Lung ScreeningProgram. Ordered By: SUNDEEP BERRIOS Interpreted [...] with a HCV Nucleic Acid Amplification test ([id number]). 12/21/2020 8:46 AM CDT 12/21/2020 Narrative [facility] - 12/22/2020 9:09 AM CDT Performed at: [address] [place] [id number] Silver Lap Machine Tender: Hank Langley PhD, Phone: [phone] us Sundeep Berrios DO LABORATORY Final Re sult [facility] [address] [place] [address] [facility] 1 * COLONOSCOPY/EGD (12/26/2014) us Documents Scanned SCANNING Final Result [facility] from Last 3 Months or Most Recently Relevant to Health Maintenance Insurance [facility] Care Teams Ic Designer Standard Cells Relationship Specialty Start Date End Date Sundeep Berrios DO [address] [place] [id number] PCP - General FAMILY PRACTICE 05/04/18
--- OUTSIDE RECORDS SUMMARY | 2024-07-09 14:19 | XMS_ITS | Encounter Summary ---
Author Organization [facility] Address [address] [place] [address] Care Team Providers Care Tool Room Machinist Name Role Phone Sundeep Thorne DO Primary Care Provider + Encounter Details Date Type Department Care Team (Late st Contact Info) Description 01/06/2023 Induction Manager Message Enc [facility] Medical Group Family & Internal Medicine [facility] [address] [place] [address] Sundeep Thorne DO [address] [place] [address] Mammogram Results Social History Tobacco Use Types Packs/Day Years Used Date Smoking Tobacco: Former Cigarettes 1 34 0 08/18/1988 - 08/18/2022 Passive Smoke Exposure: Current Smokeless Tobacco: Never Comments:Provider to director of group counseling program Alcohol Use Standard Drinks/Week Comments No 0 [...] documented as of this encounter Care Teams Tool Room Machinist Relationship Specialty Start Date End Date Sundeep Thorne DO [address] [place] [phone] PCP - General FAMILY PRACTICE 05/04/18 documented as of this encounter
--- OUTSIDE RECORDS SUMMARY | 2024-07-09 14:19 | XMS_ITS | Continuity of Care Document ---
Author Organization [facility] Address [address] [place] [address] [place] [address] Phone Care Team Providers Care Multiple Slide Operator Name Role Phone Barrett Bañuelos MD [...] Diagnoses Date Provider Providers Copied on Encounter [facility] [place], [address], [place], [address], [place] tel:[phone] [facility] [place] No Information 7 Sarmad Hyde. [address] [place], [place], [address] , [place]. [phone] OFFICE/OUTPA TIENT VISIT, EST [facility] [place], [address], [place], [place], [address], [place] [phone] [facility] [place] high RA (chief complaint) lft (chief complaint) B12 (chief complaint) Liver diseaseRheumatoid arthritis with rheumatoid factor, unspecifiedVitamin B12 deficiencyEncounter for oth screening for malignant neoplasm of breast 7 Sarmad Hyde. [address], [place], [place], [address] , [place]. tel:[phone] PREV VISIT, EST, AGE 40-64 [facility] [place], [address], [place], [place], [address], [place] tel:[phone] [facility] [place] PHysical (chief complaint) Encounter for general adult medical exam w abnormal findingsLiver diseasePain in unspecified jointBariatric surgery status 7 Sarmad Hyde. [address], [place], [place], [address] , [place]. [phone] Referring Provider: Radha Keane [address], [place], [place], [address]. tel:[phone] OFFICE/OUTPA TIENT VISIT, EST [facility] [place], [address], [place], [place], [address], [place] tel:[phone] [facility] [place] palpitatio n1 (chief complaint) weight loss1 (chief complaint) PalpitationsAbnorma l weight loss 6 Sarmad Hyde. [address], [place], [place], [address] , [place]. tel:[phone] Referring Provider: Radha Keane [address], [place], [place], [address]. tel:[phone] OFFICE/OUTPA TIENT VISIT, [facility], [address], [place], [place], [address], [place] tel:[phone] [facility] [place] palpitatio n1 (chief complaint) weight loss1 (chief complaint) PalpitationsAbnorma l weight lossLow vision, both eyes 6 Sarmad Hyde. [address], [place], [place], [address] , [place]. tel:[phone] Referring Provider: Radha Keane [address], [place], [place], [address]. tel:[phone] OFFICE/OUTPA TIENT VISIT, [facility], [address], [place], [place], [address], [place] [phone] [facility] [place] anxiety1 (chief complaint) Anxiolytic dependencePatient noncompliance w/ other medical regimen 6 Sarmad Hyde. [address], [place], [place], [address] , [place]. tel:[phone] Referring Provider: Radha Keane [address], [place], [place], [address]. tel:[phone] OFFICE/OUTPA TIENT VISIT, [facility], [address], [place], [place], [address], [place] [phone] [facility] [place] anxiety1 (chief complaint) GERD (chief complaint) GERD w/o esophagitisAnxiolyt ic dependence 6 Sarmad Hyde. [address], [place], [place], [address] , [place]. tel:[phone] Referring Provider: Radha Keane [address], [place], [place], [address]. tel:[phone] OFFICE/OUTPA TIENT VISIT, [facility], [address], [place], [place], [address], [place] tel:[phone] [facility] [place] anxiety1 (chief complaint) GERD1 (chief complaint) GERD without esophagitisAnxiolyt ic dependence 6 Sarmad Hyde. [address], [place], [place], [address] , [place]. tel:[phone] Referring Provider: Radha Keane [address], [place], [place], [address]. tel:[phone] OFFICE/OUTPA TIENT VISIT, [facility], [address], [place], [place], [address], [place] tel:[phone] [facility] [place] Anxiety1 (chief complaint) abd pain1 (chief complaint) Abdominal painGeneralized anxiety disorder May-0 4201 6 Sarmad Hyde. [address], [place], [place], [address] , [place]. tel:[phone] Referring Provider: Barrett Bañuelos, [address], [place], [place], [address]. tel:[phone] OFFICE/OUTPA TIENT VISIT, [facility], [address], [place], [place], [address], [place] tel:[phone] [facility] [place] anxiety1 (chief complaint) GERD1 (chief complaint) headache1 (chief complaint) HLP (chief complaint) GERD without esophagitisMixed hyperlipidemiaGener alized anxiety disorderVitamin D deficiency, unspecified Apr-0 5-201 6 Sarmad Hyde. [address], [place], [place], [address] , [place]. tel:[phone] Referring Provider: Radha Keane [address], [place], [place], [address]. tel:[phone] OFFICE/OUTPA TIENT VISIT, [facility], [address], [place], [place], [address], [place] tel:[phone] [facility] [place] abdominal pain (chief complaint) abd pain1 (chief complaint) anxiety1 (chief complaint) Abdominal painGeneralized anxiety disorder Mar-0 9201 6 Sarmad Hyde. [address], [place], [place], [address] , [place]. tel:[phone] Referring Provider: Radha Keane [address], [place], [place], [address]. tel:[phone] OFFICE/OUTPA TIENT VISIT, [facility], [address], [place], [place], [address], [place] tel:[phone] [facility] Medicine anxiety1 (chief complaint) abd pain (chief complaint) Other specified diseases of biliary tractAbdominal painGeneralized anxiety disorder 6 Sarmad Hyde. [address], [place], [place], [address] , [place]. tel:[phone] Referring Provider: Barrett Bañuelos, [address], [place], [place], [address]. tel:[phone] OFFICE/OUTPA TIENT VISIT, [facility], [address], [place], [place], [address], [place] tel:[phone] [facility] [place] anxiety1 (chief complaint) GERD1 (chief complaint) GERD w/o esophagitisGenerali zed anxiety disorderMixed hyperlipidemia 6 Sarmad Hyde. [address], [place], [place], [address] , [place]. tel:[phone] Referring Provider: Radha Keane [address], [place], [place], [address]. tel:[phone] OFFICE/OUTPA TIENT VISIT, [facility], [address], [place], [place], [address], [place] tel:[phone] [facility] [place] Anxiety1 (chief complaint) GERD1 (chief complaint) postmenopa usal1 (chief complaint) headache1 (chief complaint) Menopausal disorderGeneralized Anxiety DisorderMigraine without aura, not intractable, without status migrainosus 5 Sarmad Hyde. [address], [place], [place], [address] , [place]. tel:[phone] Referring Provider: Radha Keane [address], [place], [place], [address]. tel:[phone] OFFICE/OUTPA TIENT VISIT, [facility], [address], [place], [place], [address], [place] tel:[phone] [facility] Medicine headacahe1 (chief complaint) GERD1 (chief complaint) Anxiety1 (chief complaint) GERD without esophagitisMigraine without aura, not intractable, without status migrainosusGenerali zed anxiety disorderEncounter for screening for osteoporosis 5 Sarmad Hyde. [address], [place], [place], [address] , [place]. [phone] Referring Provider: Radha Ke[address], [place], [place], [address]. tel:[phone] PREV VISIT, EST, AGE 40-64 [facility] [place], [address], [place], [place], [address], [place] tel:[phone] [facility] [place] Physical (chief complaint) Encounter for adult health check-upChronic migraine w/o aura, not intractable, w/o stat migrGeneralized abdominal painGeneralized anxiety disorder 5 Sarmad Hyde. [address], [place], [place], [address] , [place]. [phone] Referring Provider: Radha Keane [address], [place], [place], [address]. tel:[phone] OFFICE/OUTPA TIENT VISIT, [facility], [address], [place], [place], [address], [place] tel:[phone] [facility] [place] headache (chief complaint) Anxeity (chief complaint) abd pain (chief complaint) HeadacheAbnormal MRI of brainAbdominal pain 5 Sarmad Hyde. [address], [place], [place], [address] , [place]. tel:[phone] Referring Provider: Radha Ke[address], [place], [place], [address]. tel:[phone] OFFICE/OUTPA TIENT VISIT, [facility], [address], [place], [place], [address], [place] tel:[phone] [facility] [place] vomiting (chief complaint) Anxiety (chief complaint) headache (chief complaint) postmeno (chief complaint) Generalized anxiety disorderEsophageal refluxHeadachePostm enopausal 5 Sarmad Hyde. [address], [place], [place], [address] , [place]. tel:[phone] Referring Provider: Radha Ke[address], [place], [place], [address]. tel:[phone] OFFICE/OUTPA TIENT VISIT, [facility], [address], [place], [place], [address], [place] tel:[phone] [facility] [place] headache (chief complaint) Anxeity (chief complaint) HeadacheLumbagoGene ralized anxiety disorder 5 Sarmad Hyde. [address], [place], [place], [address] , [place]. [phone] Referring Provider: Radha Keane [address], [place], [place], [address]. tel:[phone] OFFICE/OUTPA TIENT VISIT, [facility], [address], [place], [place], [address], [place] tel:[phone] [facility] [place] headache (chief complaint) Anxiety (chief complaint) HeadacheBenign neoplasm of colon 5 Sarmad Hyde. [address], [place], [place], [address] , [place]. [phone] Referring Provider: Radha Keane [address], [place], [place], [address]. tel:[phone] OFFICE/OUTPA TIENT VISIT, [facility], [address], [place], [place], [address], [place] tel:[phone] [facility] [place] GERD (chief complaint) Anxiety (chief complaint) GERDGeneralized anxiety disorder 5 Sarmad Hyde. [address], [place], [place], [address] , [place]. tel:[phone] Referring Provider: Radha Keane [address], [place], [place], [address]. tel:[phone] OFFICE/OUTPA TIENT VISIT, [facility], [address], [place], [place], [address], [place] [phone] [facility] [place] Anxiety (chief complaint) GERD (chief complaint) headache (chief complaint) back pain (chief complaint) GERDHeadacheGeneral ized anxiety disorderOpioid type dependence, unspecified use 5 Sarmad Hyde. [address], [place], [place], [address] , [place]. tel:[phone] Referring Provider: Barrett Bañuelos, [address], [place], [place], [address]. tel:[phone] OFFICE/OUTPA TIENT VISIT, [facility], [address], [place], [place], [address], [place] tel:[phone] [facility] [place] GERD (chief complaint) Anxiety (chief complaint) GERDSedative, hypnotic or anxiolytic dependence, unspecified 5 Sarmad Hyde. [address], [place], [place], [address] , [place]. tel:[phone] Referring Provider: Radha Keane [address], [place], [place], [address]. tel:[phone] OFFICE/OUTPA TIENT VISIT, [facility], [address], [place], [place], [address], [place] tel:[phone] [facility] [place] HLP (chief complaint) back pain (chief complaint) anxiety (chief complaint) GERD (chief complaint) GERDLumbagoOther and unspecified hyperlipidemiaGener alized anxiety disorder 5 Sarmad Hyde. [address], [place], [place], [address] , [place]. tel:[phone] Referring Provider: Radha Keane [address], [place], [place], [address]. tel:[phone] OFFICE/OUTPA TIENT VISIT, [facility], [address], [place], [place], [address], [place] tel:[phone] [facility] [place] colon polyp (chief complaint) headache (chief complaint) anxiety (chief complaint) back pain (chief complaint) Benign neoplasm of colonGERDHeadacheLu mbago 5 Sarmad Hyde. [address], [place], [place], [address] , [place]. tel:[phone] Referring Provider: Barrett Bañuelos, [address], [place], [place], [address]. tel:[phone] OFFICE/OUTPA TIENT VISIT, [facility], [address], [place], [place], [address], [place] tel:[phone] [facility] [place] back pain (chief complaint) anxiety (chief complaint) headache (chief complaint) LumbagoHeadacheGene ralized anxiety disorder 4 Sarmad Hyde. [address], [place], [place], [address] , [place]. [phone] Referring Provider: Radha Keane [address], [place], [place], [address]. tel:[phone] OFFICE/OUTPA TIENT VISIT, [facility], [address], [place], [place], [address], [place] tel:[phone] [facility] [place] headache (chief complaint) Anxeity (chief complaint) GERD (chief complaint) back pain (chief complaint) HeadacheGERDLumbago 4 Sarmad Hyde. [address], [place], [place], [address] , [place]. tel:[phone] Referring Provider: Barrett Bañuelos [address], [place], [place], [address]. tel:[phone] OFFICE/OUTPA TIENT VISIT, [facility], [address], [place], [place], [address], [place] tel:[phone] [facility] [place] scabie (chief complaint) shingle (chief complaint) anxiety (chief complaint) eye (chief complaint) ScabiesHerpes zoster with unspecified complicationAcute conjunctivitis, unspecified 4 Sarmad Hyde. [address], [place], [place], [address] , [place]. tel:[phone] Referring Provider: Barrett Bañuelos [address], [place], [place], [address]. tel:[phone] OFFICE/OUTPA TIENT VISIT, [facility], [address], [place], [place], [address], [place] tel:[phone] [facility] [place] itching (chief complaint) Scabies 4 Sarmad Hyde. [address], [place], [place], [address] , [place]. [phone] Referring Provider: Barrett Bañuelos, [address], [place], [place], [address]. tel:[phone] OFFICE/OUTPA TIENT VISIT, [facility], [address], [place], [place], [address], [place] [phone] [facility] [place] rash (chief complaint) anxiety (chief complaint) headache (chief complaint) Herpes zoster with unspecified complicationHeadach e 4 Sarmad Hyde. [address], [place], [place], [address] , [place]. [phone] Referring Provider: Radha Keane [address], [place], [place], [address]. tel:[phone] OFFICE/OUTPA TIENT VISIT, [facility], [address], [place], [place], [address], [place] [phone] [facility] [place] anxiety (chief complaint) headache (chief complaint) HeadacheGERD 4 Sarmad Hyde. [address], [place], [place], [address] , [place]. tel:[phone] Referring Provider: Radha Keane [address], [place], [place], [address]. tel:[phone] OFFICE/OUTPA TIENT VISIT, [facility], [address], [place], [place], [address], [place] tel:[phone] [facility] Medicine headache (chief complaint) anxiety (chief complaint) GERD (chief complaint) GERDHeadacheOther chronic sinusitis 4 Sarmad Escudero [address], [place], [place], [address] , [place]. tel:[phone] Referring Provider: Radha Keane [address], [place], [place], [address]. tel:[phone] OFFICE/OUTPA TIENT VISIT, [facility], [address], [place], [place], [address], [place] tel:[phone] [facility] [place] sinus (chief complaint) anxiety (chief complaint) Sinusitis, AcuteLumbago 4 Sarmad Escudero [address], [place], [place], [address] , [place]. tel:[phone] Referring Provider: Radha Keane [address], [place], [place], [address]. tel:[phone] OFFICE/OUTPA TIENT VISIT, [facility], [address], [place], [place], [address], [place] tel:[phone] [facility] [place] back pain (chief complaint) headache (chief complaint) GERD (chief complaint) HeadacheLumbagoGERD 4 Sarmad Escudero [address], [place], [place], [address] , [place]. tel:[phone] Referring Provider: Radha Ke[address], [place], [place], [address]. tel:[phone] OFFICE/OUTPA TIENT VISIT, [facility], [address], [place], [place], [address], [place] tel:[phone] [facility] [place] headache (chief complaint) anxiety (chief complaint) tinnitus (chief complaint) Tinnitus, unspecifiedHeadache 4 Sarmad Escudero [address], [place], [address] , [place]. tel:[phone] Referring Provider: Radha Keane [address], [place], [place], [address]. tel:[phone] OFFICE/OUTPA TIENT VISIT, [facility], [address], [place], [place], [address], [place] tel:[phone] [facility] [place] tinnitus (chief complaint) anxiety (chief complaint) headache (chief complaint) Tinnitus, unspecifiedHeadache Apr-0 2-201 4 Sarmad Hdye. [address], [place], [place], [address] , [place]. tel:[phone] Referring Provider: Radha Keane [address], [place], [place], [address]. tel:[phone] OFFICE/OUTPA TIENT VISIT, [facility], [address], [place], [place], [address], [place] tel:[phone] [facility] [place] anxiety (chief complaint) headache (chief complaint) Syncope and collapseHeadache Mar-0 5-201 4 Sarmad Hyde. [address], [place], [place], [address] , [place]. tel:[phone] Referring Provider: Radha Ke[address], [place], [place], [address]. tel:[phone] OFFICE/OUTPA TIENT VISIT, [facility], [address], [place], [place], [address], [place] tel:[phone] [facility] [place] headache (chief complaint) GERD (chief complaint) anxiety (chief complaint) HeadacheGERD Feb-0 4-201 4 Sarmad Hyde. [address], [place], [place], [address] , [place]. tel:[phone] Referring Provider: Radha Ke[address], [place], [place], [address]. tel:[phone] OFFICE/OUTPA TIENT VISIT, [facility], [address], [place], [place], [address], [place] tel:[phone] [facility] abdominal pain (chief complaint) anxiety (chief complaint) back pain (chief complaint) GERDLumbago 4 Sarmad Hyde. [address], [place], [place], [address] , [place]. tel:[phone] Referring Provider: Barrett Bañuelos, [address], [place], [place], [address]. tel:[phone] OFFICE/OUTPA TIENT VISIT, [facility], [address], [place], [place], [address], [place] tel:[phone] [facility] [place] abdominal pain (chief complaint) anxiety (chief complaint) GERDAbdominal Pain 3 Sarmad Hyde. [address], [place], [place], [address] , [place]. tel:[phone] Referring Provider: Radha Keane [address], [place], [place], [address]. tel:[phone] OFFICE/OUTPA TIENT VISIT, [facility], [address], [place], [place], [address], [place] tel:[phone] [facility] [place] abdominal pain (chief complaint) anxiety (chief complaint) headache (chief complaint) Abdominal PainGERDHeadache 3 Sarmad Hyde. [address], [place], [place], [address] , [place]. tel:[phone] Referring Provider: Radha Keane [address], [place], [place], [address]. tel:[phone] OFFICE/OUTPA TIENT VISIT, [facility], [address], [place], [place], [address], [place] tel:[phone] [facility] [place] abdominal pain (chief complaint) anxiety (chief complaint) Abdominal PainGERDLumbago 0 3 Sarmad Hyde. [address], [place], [place], [address] , [place]. tel:[phone] Referring Provider: Radha Keane [address], [place], [place], [address]. tel:[phone] OFFICE/OUTPA TIENT VISIT, [facility], [address], [place], [place], [address], [place] tel:[phone] [facility] [place] anxiety (chief complaint) vomiting (chief complaint) headache (chief complaint) GERDHeadacheNausea And Vomiting 3 Sarmad Hyde. [address], [place], [place], [address] , [place]. tel:[phone] Referring Provider: Radha Keane [address], [place], [place], [address]. tel:[phone] OFFICE/OUTPA TIENT VISIT, [facility], [address], [place], [place], [address], [place] tel:[phone] [facility] [place] anxiety (chief complaint) pain (chief complaint) GERD (chief complaint) Generalized anxiety disorderGERDPain in joint involving multiple sites 3 Sarmad Hyde. [address], [place], [place], [address] , [place]. tel:[phone] Referring Provider: Radha Keane [address], [place], [place], [address]. tel:[phone] OFFICE/OUTPA TIENT VISIT, [facility], [address], [place], [place], [address], [place] tel:[phone] [facility] [place] anxiety (chief complaint) headache (chief complaint) arthritis (chief complaint) Generalized anxiety disorderHeadacheCHR ONIC PAIN NEC 3 Sarmad Hyde. [address], [place], [place], [address] , [place]. tel:[phone] Referring Provider: Radha Keane [address], [place], [place], [address]. tel:[phone] OFFICE/OUTPA TIENT VISIT, [facility], [address], [place], [place], [address], [place] tel:[phone] [facility] [place] Headache (chief complaint) GERD (chief complaint) chronic pain (chief complaint) anxiety (chief complaint) HeadacheGERDGeneral ized anxiety disorder 3 Sarmad Hyde. [address], [place], [place], [address] , [place]. tel:[phone] Referring Provider: Radha Keane [address], [place], [place], [address]. tel:[phone] OFFICE/OUTPA TIENT VISIT, [facility], [address], [place], [place], [address], [place] tel:[phone] [facility] [place] GERD (chief complaint) anxiety (chief complaint) GERDGeneralized anxiety disorderBipolar disorder, unspecified 3 Sarmad Escudero [address], [place], [place], [address] , [place]. tel:[phone] Referring Provider: Radha Keane [address], [place], [place], [address]. tel:[phone] OFFICE/OUTPA TIENT VISIT, [facility], [address], [place], [place], [address], [place] tel:[phone] [facility] [place] headache (chief complaint) anxiety (chief complaint) GERD (chief complaint) GERDHeadacheGeneral ized anxiety disorder 3 Sarmad Esc[address]ero [address], [place], [place], [address] , [place]. tel:[phone] Referring Provider: Radha Keane [address], [place], [place], [address]. tel:[phone] OFFICE/OUTPA TIENT VISIT, [facility], [address], [place], [place], [address], [place] tel:[phone] [facility] [place] Headache (chief complaint) abdominal pain (chief complaint) HeadacheGeneralized anxiety disorderGERD 3 Sarmad Esc[address]ero [address], [place] [place], [id number] , [place]. tel:[phone] Referring Provider: Barrett Bañuelos, [address], [place], [place], [address]. tel:[phone] OFFICE/OUTPA TIENT VISIT, [facility], [address], [place], [place], [address], [place] tel:[phone] [facility] [place] abdominal pain (chief complaint) headache (chief complaint) anxiety (chief complaint) insomnia (chief complaint) Abdominal PainHeadacheGeneral ized anxiety disorderInsomnia, Other 3 Sarmad Hyde. [address], [place], [place], [address] , [place]. [phone] Referring Provider: Barrett Bañuelos, [address], [place], [place], [address]. tel:[phone] OFFICE/OUTPA TIENT VISIT, [facility], [address], [place], [place], [address], [place] tel:[phone] [facility] [place] epilpesy (chief complaint) anxiety (chief complaint) Epilepsy, unspecified, without mention of intractable epilepsyGeneralized anxiety disorder 3 Sarmad Hyde. [address], [place], [place], [address] , [place]. tel:[phone] Referring Provider: Radha [address], [place], [place], [address]. tel:[phone] OFFICE/OUTPA TIENT VISIT, [facility], [address], [place], [place], [address], [place] tel:[phone] [facility] [place] anxiety (chief complaint) bipolar (chief complaint) back pain (chief complaint) Generalized anxiety disorderMajor depressive affective disorder, single episode, mild degreeLumbago 2 Sarmad Hyde. [address], [place], [place], [address] , [place]. tel:[phone] Referring Provider: Radha Ke[address], [place], [place], [address]. tel:[phone] OFFICE/OUTPA TIENT VISIT, [facility], [address], [place], [place], [address], [place] tel:[phone] [facility] [place] syncope (chief complaint) depression (chief complaint) Syncope and collapseGeneralized anxiety disorderBipolar disorder, unspecified 2 Sarmad Hyde. [address], [place], [place], [address] , [place]. tel:[phone] Referring Provider: Barrett Bañuelos, [address], [place], [place], [address]. tel:[phone] OFFICE/OUTPA TIENT VISIT, [facility], [address], [place], [place], [address], [place] tel:[phone] [facility] [place] tobacco (chief complaint) Tobacco Abuse 2 Sarmad Hyde. [address], [place], [place], [address] , [place]. tel:[phone] Referring Provider: Radha [address], [place], [place], [address]. tel:[phone] OFFICE/OUTPA TIENT VISIT, [facility], [address], [place], [place], [address], [place] tel:[phone] [facility] [place] anxiety (chief complaint) epilepsy (chief complaint) EPILEPSY-UNSPECIFIE DLumbagoMajor depressive affective disorder, single episode, mild degreeSyncope and collapse 2 Sarmad Hyde. [address], [place], [place], [address] , [place]. tel:[phone] Referring Provider: Radha [address], [place], [place], [address]. tel:[phone] OFFICE/OUTPA TIENT VISIT, [facility], [address], [place], [place], [address], [place] tel:[phone] [facility] [place] viral (chief complaint) Viral Infection, Unspecified 2 Sarmad Hyde. [address], [place], [place], [address] , [place]. [phone] Referring Provider: Barrett Bañuelos, [address], [place], [place], [address]. tel:[phone] OFFICE/OUTPA TIENT VISIT, EST [facility], [address], [place], [place], [address], [place] [phone] [facility] [place] back pain (chief complaint) anxiety (chief complaint) LumbagoGeneralized anxiety disorderGeneralized convulsive epilepsy, with intractable epilepsy 2 Sarmad Hyde. [address], [place], [place], [address] , [place]. [phone] Family History Family Member Type Diagnosis Age At Onset Mother Problem (finding) Cancer, lung Father Problem (finding) Alive and well Mother Problem (finding) Cancer, colon Payers Payer name Insurance type Covered green party ID Authoriza tion(s) No Information Social [...] MD [address] [place], [place], [address] Ordered: Referrals: Lyssa Aparicio MD. Evaluate and treat ordered Referral Ordered: MRI ABDOMEN W/O & W/DYE ordered Referral Ordered: [facility] (related to Pain in unspecified joint) ordered Referral Referred To: [facility]
[address] [place], [phone] Ordered: Referrals: Faisal West. Evaluate and treat [...] homicdialt hought. Pt denies any crying spells abd pain1 Pt has right upp er quadrant abd pain. Pt is seeing GI. Pt just had her gallbladder removed 3 days ago. Pt doing ok post op. Pt is able to pass gas but has not had BM yet. Pt denies any nasusea, vomiting Anxiety1 Pt has chronic a nxiety anddepression. Pt denies any suicidal thought. Pt takes xanax and zoloft PRN and doing ok Pt denies anyc rying spells. headache1 Pt is seeing chirag whittaker. Pt will try botox. Pt still working with neurology for MS? GERD1 Pt has chornic G ERD and she takes nexium and zantac. Pt denies any GERD symptmos. Pt has chornic nauea, GI will do EGD soon. Pt also will be refered to [facility] for gallbladder polyp. Pt denies [...] Pt denies any acute pain abdominal pain anxiety1 Pt has chronic a nxiety [...] mood is worse. Pt has appointment with ADVERTISING INTERN next month headacahe1 Pt has chronic m [...] f total hystercomty. Pt takes estrodial. Her ADVERTISING INTERN no longer takes her insurance. Pt needs refilled. Pt is trying to find ADVERTISING INTERN now. Pt has vasomotor and mood disorder [...] months. Instructions Date Instruction Additional Infor mation Quit [...]
--- OUTSIDE RECORDS SUMMARY | 2024-07-09 14:19 | XMS_ITS | Referral Summary ---
Author Organization [facility] Address [address] [place] [address] Care Team Providers Care Director Power Name Role Phone Barrett Bañuelos MD Primary Care Provider + [phone] Allergies Active Allergy Reactions Criticality Noted Date [...] on file Legal Sex Female 6:54 PM INSPECTOR SCREEN PRINTING Gender Identity Not on file Sexual Orientation Not on file Last Filed Vital Signs Vital Sign Reading Time Taken Comments Blood Pressure 92/60 01/14/2017 1:24 PM INSPECTOR SCREEN PRINTING Pulse 75 01/14/2017 1:24 PM INSPECTOR SCREEN PRINTING Temperature 36.8 C (98.2 F) 01/14/2017 1:24 PM INSPECTOR SCREEN PRINTING Respiratory Rate 16 01/14/2017 1:24 PM INSPECTOR SCREEN PRINTING Oxygen Saturation 94% 01/14/2017 1:24 PM INSPECTOR SCREEN PRINTING Inhaled Oxygen Concentration - - Weight 64.4 kg (142 lb) 01/14/2017 1:24 PM INSPECTOR SCREEN PRINTING Height 157.5 cm (5' 2 ) 01/14/2017 1:24 PM INSPECTOR SCREEN PRINTING Body Mass Index 25.97 01/14/2017 1:24 PM INSPECTOR SCREEN PRINTING Plan of Treatment Not on file Insurance IDPA [facility] MEDICARE ADVANTAGE [facility] MEDICARE ADVANTAGE Care Teams Director Power Relationship Specialty Start Date End Date Barrett Bañuelos MD PCP - General Family Medicine 12/17/16
--- OUTSIDE RECORDS SUMMARY | 2024-07-09 14:19 | XMS_ITS | Clinical Summary ---
Author Organization [facility] Address [address] [place] [address] Phone Care Team Providers Care Dyeing Machine Tender Name Role Phone Unavailable Primary Care Provider [...]
--- OUTSIDE RECORDS SUMMARY | 2024-07-09 14:19 | XMS_ITS | Encounter Summary ---
Author Organization [facility] Address [address] [place] [address] Care Team Providers Care Heavy Duty Truck Mechanic Name Role Phone Sundeep Thorne DO Primary Care Provider + Encounter Details Date Type Department Care Team (Late st Contact Info) Description 02/09/2024 [employer] Message Enc [facility] Medical Group Family & Internal Medicine [facility] [address] [place] [address] Sundeep Thorne DO [address] [place] [address] LDCT chest results Social History Tobacco Use Types Packs/Day Years Used Date Smoking Tobacco: Every Day Cigarettes 1 34 Started: 08/18/1988; Last attempted to quit: 08/18/2022 Passive Smoke Exposure: Current Smokeless Tobacco: Never Comments:Provider to apprise counselor not a smoker Alcohol Use Standard [...] documented as of this encounter Care Teams Heavy Duty Truck Mechanic Relationship Specialty Start Date End Date Sundeep Thorne DO [address] [place] [address] PCP - General FAMILY PRACTICE 05/04/18 documented as of this encounter
--- OUTSIDE RECORDS SUMMARY | 2024-07-09 14:19 | XMS_ITS | Clinical Summary ---
Author Organization [facility] Address [address] [place] [address] Care Team Providers Care Electrical System Specialist Name Role Phone Barrett Bañuelos MD Primary Care Provider + [phone] Allergies Active Allergy Reactions Criticality Noted Date [...] on file Legal Sex Female 6:54 PM INFORMATION SECURITY MANAGER Gender Identity Not on file Sexual Orientation Not on file Obstetrics History Last Filed Vital Signs Vital Sign Reading Time Taken Comments Blood Pressure 92/60 01/14/2017 1:24 PM INFORMATION SECURITY MANAGER Pulse 75 01/14/2017 1:24 PM INFORMATION SECURITY MANAGER Temperature 36.8 C (98.2 F) 01/14/2017 1:24 PM INFORMATION SECURITY MANAGER Respiratory Rate 16 01/14/2017 1:24 PM INFORMATION SECURITY MANAGER Oxygen Saturation 94% 01/14/2017 1:24 PM INFORMATION SECURITY MANAGER Inhaled Oxygen Concentration - - Weight 64.4 kg (142 lb) 01/14/2017 1:24 PM INFORMATION SECURITY MANAGER Height 157.5 cm (5' 2 ) 01/14/2017 1:24 PM INFORMATION SECURITY MANAGER Body Mass Index 25.97 01/14/2017 1:24 PM INFORMATION SECURITY MANAGER Plan of Treatment Not on file Insurance IDPA [facility] MEDICARE ADVANTAGE [facility] Address: [address] [address] [place] [address] [facility] Address: [facility] [address] [place] [address] Care Teams Electrical System Specialist Relationship Specialty Start Date End Date Barrett Bañuelos MD PCP - General Family Medicine 12/17/16
--- OUTSIDE RECORDS SUMMARY | 2024-07-09 14:19 | XMS_ITS | CONTINUITY OF CARE DOCUMENT ---
Author Name demi simms Address Unknown Organization [facility] Address [address] [place] [address] Phone [phone] Care Team Providers Care Eye Surgeon Name Role Phone Octavio MENA, Elli Unavailable FABIOLA MENA, MIMI Unavailable [phone] FABIOLA MENA, MIMI Unavailable [phone] PROBLEMS Condition Status Date Provider Notes Palpitations active Koby Hansen INSURANCE PROVIDERS Payer name Policy type / Coverage type [place] red republican [employer] [facility] [facility] [employer] Medicaid 2 [id number] [place] MEDICARE Medicare [id number] TREATMENT PLAN Date Name Holter Monitor 24 Hr
--- OUTSIDE RECORDS SUMMARY | 2024-07-09 14:19 | XMS_ITS | Encounter Summary ---
Author Organization [facility] Address [facility] [place] [address] Care Team Providers Care Clinical Administrator Name Role Phone Sundeep Thorne DO Primary Care Provider + Sundeep Thorne DO Unavailable [phone] Encounter Details Date Type Department Care Team (Late st Contact Info) Description 01/05/2020 [employer] Message Enc [facility] Medical Group Family & Internal Medicine [facility] [address] [place] [address] Sundeep Thorne DO [address] [place] [address] Medication Questions Social History Tobacco [...] Rule Out 01/02/2020 01/03/2020 01/17/2020 9:28 AM MACHINE REPAIR PERSON COVID-19 Rule Out 11/23/2020 11/23/2020 11/23/2020 10:47 AM CDT COVID-19 Rule Out 12/23/2021 12/23/2021 12/30/2021 12:33 AM CDT Assessment Noted Time PHQ-9 Depression Total Score: 3 05/18/19 19 1:40 PM CDT documented as of this encounter Care Teams Clinical Administrator Relationship Specialty Start Date End Date Sundeep Thorne DO [address] [place] [address] PCP - General FAMILY PRACTICE 05/04/18 Sundeep Thorne DO [address] [place] [address] PCP - Med Group - [facility] Attributed Provider 05/09/19 03/09/20 documented as of this encounter
== END 2024-07-08 14:13 | disposition home or self-care (01) ==
PROVIDERS: PCP Student in an Organized Health Care Education/Training Program; Visit Provider Student in an Organized Health Care Education/Training Program
DX: Z12.31 Encounter for screening mammogram for malignant neoplasm of breast (principal); R92.8 Other abnormal and inconclusive findings on diagnostic imaging of breast
CPT/HCPCS: 77063; 77067

== ENCOUNTER 2024-11-03 19:25 | Emergency (ER) | payer MEDICARE, SELFPAY ==
--- OUTSIDE RECORDS SUMMARY | 2017-02-11 10:25 | XMS_ITS | Continuity of Care Document ---
Author Organization [facility] Address [address] [place] [address] [place] [address] Phone Care Team Providers Care Submersible Pilot Name Role Phone Barrett Bañuelos MD Unavailable Unavailable Allergies, Adverse Reactions, Alerts Substance Reaction Status Criticality penicillin G Active No Information morphine Active No Information Medications Medication Instructions Dosage Effective Dates (start - stop) Status Comments Xanax 2 mg tablet take 1 tablet by ora l route 3 times every day 2 MG - Active Abilify 5 mg tablet take 1 tablet by ora l route every day 5 MG - Active Procedures Procedure Date OFFICE/OUTPATIENT VISIT, EST PREV VISIT, EST, AGE 40-64 OFFICE/OUTPATIENT VISIT, EST OFFICE/OUTPATIENT VISIT, EST OFFICE/OUTPATIENT VISIT, EST OFFICE/OUTPATIENT VISIT, EST OFFICE/OUTPATIENT VISIT, EST OFFICE/OUTPATIENT VISIT, EST OFFICE/OUTPATIENT VISIT, EST OFFICE/OUTPATIENT VISIT, EST OFFICE/OUTPATIENT VISIT, EST OFFICE/OUTPATIENT VISIT, EST OFFICE/OUTPATIENT VISIT, EST OFFICE/OUTPATIENT VISIT, EST OFFICE/OUTPATIENT VISIT, EST PREV VISIT, EST, AGE 40-64 OFFICE/OUTPATIENT VISIT, EST OFFICE/OUTPATIENT VISIT, EST OFFICE/OUTPATIENT VISIT, EST OFFICE/OUTPATIENT VISIT, EST OFFICE/OUTPATIENT VISIT, EST OFFICE/OUTPATIENT VISIT, EST OFFICE/OUTPATIENT VISIT, EST OFFICE/OUTPATIENT VISIT, EST OFFICE/OUTPATIENT VISIT, EST OFFICE/OUTPATIENT VISIT, EST OFFICE/OUTPATIENT VISIT, EST OFFICE/OUTPATIENT VISIT, EST OFFICE/OUTPATIENT VISIT, EST OFFICE/OUTPATIENT VISIT, EST OFFICE/OUTPATIENT VISIT, EST OFFICE/OUTPATIENT VISIT, EST OFFICE/OUTPATIENT VISIT, EST OFFICE/OUTPATIENT VISIT, EST OFFICE/OUTPATIENT VISIT, EST OFFICE/OUTPATIENT VISIT, EST OFFICE/OUTPATIENT VISIT, EST OFFICE/OUTPATIENT VISIT, EST OFFICE/OUTPATIENT VISIT, EST OFFICE/OUTPATIENT VISIT, EST OFFICE/OUTPATIENT VISIT, EST OFFICE/OUTPATIENT VISIT, EST OFFICE/OUTPATIENT VISIT, EST OFFICE/OUTPATIENT VISIT, EST OFFICE/OUTPATIENT VISIT, EST OFFICE/OUTPATIENT VISIT, EST OFFICE/OUTPATIENT VISIT, EST OFFICE/OUTPATIENT VISIT, EST OFFICE/OUTPATIENT VISIT, EST OFFICE/OUTPATIENT VISIT, EST OFFICE/OUTPATIENT VISIT, EST OFFICE/OUTPATIENT VISIT, EST OFFICE/OUTPATIENT VISIT, EST OFFICE/OUTPATIENT VISIT, EST OFFICE/OUTPATIENT VISIT, EST OFFICE/OUTPATIENT VISIT, EST OFFICE/OUTPATIENT VISIT, EST OFFICE/OUTPATIENT VISIT, EST Advance Directives Directive Yes / No Effective Date File Name No Information Encounters Encounter Description Practice Location Reason(s) For Visit Diagnoses Date Provider Providers Copied on Encounter [facility], [address], [place], [id number], [place] tel:[phone] [facility] No Information 7 Sarmad Hyde. [address] [place], [place], [address] , [place]. [phone] OFFICE/OUTPA TIENT VISIT, EST [facility], [address], [place], [place], [address], [place] [phone] [facility] high RA (chief complaint) lft (chief complaint) B12 (chief complaint) Liver diseaseRheumatoid arthritis with rheumatoid factor, unspecifiedVitamin B12 deficiencyEncounter for oth screening for malignant neoplasm of breast 7 Sarmad Hyde. [address], [place], [place], [address] , [place]. tel:[phone] PREV VISIT, EST, AGE 40-64 [facility], [address], [place], [place], [address], [place] tel:[phone] [facility] PHysical (chief complaint) Encounter for general adult medical exam w abnormal findingsLiver diseasePain in unspecified jointBariatric surgery status 7 Sarmad Hyde. [address], [place], [place], [address] , [place]. [phone] Referring Provider: Radha Keane [address], [place], [place], [address]. tel:[phone] OFFICE/OUTPA TIENT VISIT, EST [facility], [address], [place], [place], [address], [place] tel:[phone] [facility] palpitatio n1 (chief complaint) weight loss1 (chief complaint) PalpitationsAbnorma l weight loss 6 Sarmad Hyde. [address], [place], [place], [address] , [place]. tel:[phone] Referring Provider: Radha Keane [address], [place], [address]. tel:[phone] OFFICE/OUTPA TIENT VISIT, [facility], [address], [place], [place], [address], [place] tel:[phone] [facility] palpitatio n1 (chief complaint) weight loss1 (chief complaint) PalpitationsAbnorma l weight lossLow vision, both eyes 6 Sarmad Hyde. [address], [place], [address] , [place]. tel:[phone] Referring Provider: Radha Keane [address], [place], [place], [address]. tel:[phone] OFFICE/OUTPA TIENT VISIT, [facility], [address], [place], [address], [place] [phone] [facility] anxiety1 (chief complaint) Anxiolytic dependencePatient noncompliance w/ other medical regimen 6 Sarmad Hyde. [address], [place], [address] , [place]. tel:[phone] Referring Provider: Radha Keane [address], [place], [address]. tel:[phone] OFFICE/OUTPA TIENT VISIT, [facility], [address], [place], [place], [address], [place] [phone] [facility] anxiety1 (chief complaint) GERD (chief complaint) GERD w/o esophagitisAnxiolyt ic dependence 6 Sarmad Hyde. [address], [place], [place], [address] , [place]. tel:[phone] Referring Provider: Radha Keane [address], [place], [address]. tel:[phone] OFFICE/OUTPA TIENT VISIT, [facility], [address], [place], [place], [address], [place] tel:[phone] [facility] anxiety1 (chief complaint) GERD1 (chief complaint) GERD without esophagitisAnxiolyt ic dependence 6 Sarmad Hyde. [address], [place], [address] , [place]. tel:[phone] Referring Provider: Radha Keane [address], [place], [address]. tel:[phone] OFFICE/OUTPA TIENT VISIT, [facility], [address], [place], [address], [place] tel:[phone] [facility] Anxiety1 (chief complaint) abd pain1 (chief complaint) Abdominal painGeneralized anxiety disorder May-0 4201 6 Sarmad Hyde. [address], [place], [place], [address] , [place]. tel:[phone] Referring Provider: Barrett Bañuelos, [address], [place], [place], [address]. tel:[phone] OFFICE/OUTPA TIENT VISIT, [facility], [address], [place], [address], [place] tel:[phone] [facility] anxiety1 (chief complaint) GERD1 (chief complaint) headache1 (chief complaint) HLP (chief complaint) GERD without esophagitisMixed hyperlipidemiaGener alized anxiety disorderVitamin D deficiency, unspecified Apr-0 5-201 6 Sarmad Hyde. [address], [place], [address] , [place]. tel:[phone] Referring Provider: Radha Keane [address], [place], [address]. tel:[phone] OFFICE/OUTPA TIENT VISIT, [facility], [address], [place], [address], [place] tel:[phone] [facility] abdominal pain (chief complaint) abd pain1 (chief complaint) anxiety1 (chief complaint) Abdominal painGeneralized anxiety disorder Mar-0 9201 6 Sarmad Hyde. [address], [place], [place], [address] , [place]. tel:[phone] Referring Provider: Radha Keane [address], [place], [address]. tel:[phone] OFFICE/OUTPA TIENT VISIT, [facility], [address], [place], [address], [place] tel:[phone] [facility] anxiety1 (chief complaint) abd pain (chief complaint) Other specified diseases of biliary tractAbdominal painGeneralized anxiety disorder 6 Sarmad Hyde. [address], [place], [place], [address] , [place]. tel:[phone] Referring Provider: Barrett Bañuelos, Rad[address], [place], [place], [address]. tel:[phone] OFFICE/OUTPA TIENT VISIT, [facility], [address], [place], [place], [address], [place] tel:[phone] [facility] anxiety1 (chief complaint) GERD1 (chief complaint) GERD w/o esophagitisGenerali zed anxiety disorderMixed hyperlipidemia 6 Sarmad Hyde. [address], [place], [place], [address] , [place]. tel:[phone] Referring Provider: Radha Keane [address], [place], [address]. tel:[phone] OFFICE/OUTPA TIENT VISIT, [facility], [address], [place], [address], [place] tel:[phone] [facility] Anxiety1 (chief complaint) GERD1 (chief complaint) postmenopa usal1 (chief complaint) headache1 (chief complaint) Menopausal disorderGeneralized Anxiety DisorderMigraine without aura, not intractable, without status migrainosus 5 Sarmad Hyde. [address], [place], [address] , [place]. tel:[phone] Referring Provider: Radha Keane [address], [place], [address]. tel:[phone] OFFICE/OUTPA TIENT VISIT, [facility], [address], [place], [address], [place] tel:[phone] [facility] headacahe1 (chief complaint) GERD1 (chief complaint) Anxiety1 (chief complaint) GERD without esophagitisMigraine without aura, not intractable, without status migrainosusGenerali zed anxiety disorderEncounter for screening for osteoporosis 5 Sarmad Hyde. [address], [place], [place], [address] , [place]. [phone] Referring Provider: Radha Keane [address], [place], [address]. tel:[phone] PREV VISIT, EST, AGE 40-64 [facility], [address], [place], [address], [place] tel:[phone] [facility] Physical (chief complaint) Encounter for adult health check-upChronic migraine w/o aura, not intractable, w/o stat migrGeneralized abdominal painGeneralized anxiety disorder 5 Sarmad Hyde. [address], [place], [address] , [place]. [phone] Referring Provider: Radha Keane [address], [place], [address]. tel:[phone] OFFICE/OUTPA TIENT VISIT, [facility], [address], [place], [address], [place] tel:[phone] [facility] headache (chief complaint) Anxeity (chief complaint) abd pain (chief complaint) HeadacheAbnormal MRI of brainAbdominal pain 5 Sarmad Hyde. [address], [place], [address] , [place]. tel:[phone] Referring Provider: Radha Keane [address], [place], [place], [address]. tel:[phone] OFFICE/OUTPA TIENT VISIT, [facility], [address], [place], [place], [address], [place] tel:[phone] [facility] vomiting (chief complaint) Anxiety (chief complaint) headache (chief complaint) postmeno (chief complaint) Generalized anxiety disorderEsophageal refluxHeadachePostm enopausal 5 Sarmad Hyde. [address], [place], [address] , [place]. tel:[phone] Referring Provider: Radha Keane [address], [place], [address]. tel:[phone] OFFICE/OUTPA TIENT VISIT, [facility], [address], [place], [address], [place] tel:[phone] [facility] headache (chief complaint) Anxeity (chief complaint) HeadacheLumbagoGene ralized anxiety disorder 5 Sarmad Hyde. [address], [place], [address] , [place]. [phone] Referring Provider: Radha Keane [address], [place], [address]. tel:[phone] OFFICE/OUTPA TIENT VISIT, [facility], [address], [place], [address], [place] tel:[phone] [facility] headache (chief complaint) Anxiety (chief complaint) HeadacheBenign neoplasm of colon 5 Sarmad Hyde. [address], [place], [address] , [place]. [phone] Referring Provider: Radha Keane [address], [place], [address]. tel:[phone] OFFICE/OUTPA TIENT VISIT, [facility], [address], [place], [address], [place] tel:[phone] [facility] GERD (chief complaint) Anxiety (chief complaint) GERDGeneralized anxiety disorder 5 Sarmad Hyde. [address], [place], [address] , [place]. [phone] Referring Provider: Radha Keane [address], [place], [address]. tel:[phone] OFFICE/OUTPA TIENT VISIT, [facility], [address], [place], [address], [place] [phone] [facility] Anxiety (chief complaint) GERD (chief complaint) headache (chief complaint) back pain (chief complaint) GERDHeadacheGeneral ized anxiety disorderOpioid type dependence, unspecified use 5 Sarmad Hyde. [address], [place], [address] , [place]. tel:[phone] Referring Provider: Barrett Bañuelos, [address], [place], [place], [address]. tel:[phone] OFFICE/OUTPA TIENT VISIT, [facility], [address], [place], [place], [address], [place] tel:[phone] [facility] GERD (chief complaint) Anxiety (chief complaint) GERDSedative, hypnotic or anxiolytic dependence, unspecified 5 Sarmad Hyde. [address], [place], [address] , [place]. tel:[phone] Referring Provider: Radha Keane [address], [place], [place], [address]. tel:[phone] OFFICE/OUTPA TIENT VISIT, [facility], [address], [place], [address], [place] tel:[phone] [facility] HLP (chief complaint) back pain (chief complaint) anxiety (chief complaint) GERD (chief complaint) GERDLumbagoOther and unspecified hyperlipidemiaGener alized anxiety disorder 5 Sarmad Hyde. [address], [place], [address] , [place]. tel:[phone] Referring Provider: Radha Keane [address], [place], [place], [address]. tel:[phone] OFFICE/OUTPA TIENT VISIT, [facility], [address], [place], [address], [place] tel:[phone] [facility] colon polyp (chief complaint) headache (chief complaint) anxiety (chief complaint) back pain (chief complaint) Benign neoplasm of colonGERDHeadacheLu mbago 5 Sarmad Hyde. [address], [place], [place], [address] , [place]. tel:[phone] Referring Provider: Barrett Bañuelos, [address], [place], [place], [address]. tel:[phone] OFFICE/OUTPA TIENT VISIT, [facility], [address], [place], [address], [place] tel:[phone] [facility] back pain (chief complaint) anxiety (chief complaint) headache (chief complaint) LumbagoHeadacheGene ralized anxiety disorder 4 Sarmad Hyde. [address], [place], [place], [address] , [place]. [phone] Referring Provider: Radha Keane [address], [place], [address]. tel:[phone] OFFICE/OUTPA TIENT VISIT, [facility], [address], [place], [place], [address], [place] tel:[phone] [facility] headache (chief complaint) Anxeity (chief complaint) GERD (chief complaint) back pain (chief complaint) HeadacheGERDLumbago 4 Sarmad Hyde. [address], [place], [address] , [place]. tel:[phone] Referring Provider: Barrett Bañuelos [address], [place], [place], [address]. tel:[phone] OFFICE/OUTPA TIENT VISIT, [facility], [address], [place], [place], [address], [place] tel:[phone] [facility] scabie (chief complaint) shingle (chief complaint) anxiety (chief complaint) eye (chief complaint) ScabiesHerpes zoster with unspecified complicationAcute conjunctivitis, unspecified 4 Sarmad Hyde. [address], [place], [place], [address] , [place]. tel:[phone] Referring Provider: Barrett Bañuelos [address], [place], [place], [address]. tel:[phone] OFFICE/OUTPA TIENT VISIT, [facility], [address], [place], [address], [place] tel:[phone] [facility] itching (chief complaint) Scabies 4 Sarmad Hyde. [address], [place], [address] , [place]. [phone] Referring Provider: Barrett Bañuelos, [address], [place], [place], [address]. tel:[phone] OFFICE/OUTPA TIENT VISIT, [facility], [address], [place], [place], [address], [place] [phone] [facility] rash (chief complaint) anxiety (chief complaint) headache (chief complaint) Herpes zoster with unspecified complicationHeadach e 4 Sarmad Hyde. [address], [place], [place], [address] , [place]. [phone] Referring Provider: Radha Keane [address], [place], [address]. tel:[phone] OFFICE/OUTPA TIENT VISIT, [facility], [address], [place], [address], [place] [phone] [facility] anxiety (chief complaint) headache (chief complaint) HeadacheGERD 4 Sarmad Hyde. [address], [place], [address] , [place]. tel:[phone] Referring Provider: Radha Keane [address], [place], [place], [address]. tel:[phone] OFFICE/OUTPA TIENT VISIT, [facility], [address], [place], [place], [address], [place] tel:[phone] [facility] headache (chief complaint) anxiety (chief complaint) GERD (chief complaint) GERDHeadacheOther chronic sinusitis 4 Sarmad Escudero [address], [place], [place], [address] , [place]. tel:[phone] Referring Provider: Radha Keane [address], [place], [place], [address]. tel:[phone] OFFICE/OUTPA TIENT VISIT, [facility], [address], [place], [place], [address], [place] tel:[phone] [facility] sinus (chief complaint) anxiety (chief complaint) Sinusitis, AcuteLumbago 4 Sarmad Escudero [address], [place], [place], [address] , [place]. tel:[phone] Referring Provider: Radha Keane [address], [place], [place], [address]. tel:[phone] OFFICE/OUTPA TIENT VISIT, [facility], [address], [place], [place], [address], [place] tel:[phone] [facility] back pain (chief complaint) headache (chief complaint) GERD (chief complaint) HeadacheLumbagoGERD 4 Sarmad Escudero [address], [place], [place], [address] , [place]. tel:[phone] Referring Provider: Radha Keane [address], [place], [place], [address]. tel:[phone] OFFICE/OUTPA TIENT VISIT, [facility], [address], [place], [address], [place] tel:[phone] [facility] headache (chief complaint) anxiety (chief complaint) tinnitus (chief complaint) Tinnitus, unspecifiedHeadache 4 Sarmad Escudero [address], [place], [address] , [place]. tel:[phone] Referring Provider: Radha Keane [address], [place], [place], [address]. tel:[phone] OFFICE/OUTPA TIENT VISIT, [facility], [address], [place], [place], [address], [place] tel:[phone] [facility] tinnitus (chief complaint) anxiety (chief complaint) headache (chief complaint) Tinnitus, unspecifiedHeadache Apr-0 2-201 4 Sarmad Hyde. [address], [place], [place], [address] , [place]. tel:[phone] Referring Provider: Radha Keane [address], [place], [address]. tel:[phone] OFFICE/OUTPA TIENT VISIT, [facility], [address], [place], [address], [place] tel:[phone] [facility] anxiety (chief complaint) headache (chief complaint) Syncope and collapseHeadache Mar-0 5-201 4 Sarmad Hyde. [address], [place], [place], [address] , [place]. tel:[phone] Referring Provider: Radha Keane [address], [place], [place], [address]. tel:[phone] OFFICE/OUTPA TIENT VISIT, [facility], [address], [place], [place], [address], [place] tel:[phone] [facility] headache (chief complaint) GERD (chief complaint) anxiety (chief complaint) HeadacheGERD Feb-0 4-201 4 Sarmad Hyde. [address], [place], [place], [address] , [place]. tel:[phone] Referring Provider: Radha Keane [address], [place], [place], [address]. tel:[phone] OFFICE/OUTPA TIENT VISIT, [facility], [address], [place], [address], [place] tel:[phone] [facility] abdominal pain (chief complaint) anxiety (chief complaint) back pain (chief complaint) GERDLumbago 4 Sarmad Hyde. [address], [place], [place], [address] , [place]. tel:[phone] Referring Provider: Barrett Bañuelos, Rad[address], [place], [place], [address]. tel:[phone] OFFICE/OUTPA TIENT VISIT, [facility], [address], [place], [place], [address], [place] tel:[phone] [facility] abdominal pain (chief complaint) anxiety (chief complaint) GERDAbdominal Pain 3 Sarmad Hyde. [address], [place], [place], [address] , [place]. tel:[phone] Referring Provider: Radha Keane [address], [place], [place], [address]. tel:[phone] OFFICE/OUTPA TIENT VISIT, [facility], [address], [place], [address], [place] tel:[phone] [facility] abdominal pain (chief complaint) anxiety (chief complaint) headache (chief complaint) Abdominal PainGERDHeadache 3 Sarmad Hyde. [address], [place], [place], [address] , [place]. tel:[phone] Referring Provider: Radha Keane [address], [place], [place], [address]. tel:[phone] OFFICE/OUTPA TIENT VISIT, [facility], [address], [place], [place], [address], [place] tel:[phone] [facility] abdominal pain (chief complaint) anxiety (chief complaint) Abdominal PainGERDLumbago 0 3 Sarmad Hyde. [address], [place], [place], [address] , [place]. tel:[phone] Referring Provider: Radha Keane [address], [place], [place], [address]. tel:[phone] OFFICE/OUTPA TIENT VISIT, [facility], [address], [place], [address], [place] tel:[phone] [facility] anxiety (chief complaint) vomiting (chief complaint) headache (chief complaint) GERDHeadacheNausea And Vomiting 3 Sarmad Hyde. [address], [place], [place], [address] , [place]. tel:[phone] Referring Provider: Radha Keane [address], [place], [address]. tel:[phone] OFFICE/OUTPA TIENT VISIT, [facility], [address], [place], [place], [address], [place] tel:[phone] [facility] anxiety (chief complaint) pain (chief complaint) GERD (chief complaint) Generalized anxiety disorderGERDPain in joint involving multiple sites 3 Sarmad Hyde. [address], [place], [address] , [place]. tel:[phone] Referring Provider: Radha Keane [address], [place], [place], [address]. tel:[phone] OFFICE/OUTPA TIENT VISIT, [facility], [address], [place], [address], [place] tel:[phone] [facility] anxiety (chief complaint) headache (chief complaint) arthritis (chief complaint) Generalized anxiety disorderHeadacheCHR ONIC PAIN NEC 3 Sarmad Hyde. [address], [place], [place], [address] , [place]. tel:[phone] Referring Provider: Radha Keane [address], [place], [place], [address]. tel:[phone] OFFICE/OUTPA TIENT VISIT, [facility], [address], [place], [address], [place] tel:[phone] [facility] Headache (chief complaint) GERD (chief complaint) chronic pain (chief complaint) anxiety (chief complaint) HeadacheGERDGeneral ized anxiety disorder 3 Sarmad Hyde. [address], [address], [place], [place], [address] , [place]. tel:[phone] Referring Provider: Radha Keane [address], [place], [place], [address]. tel:[phone] OFFICE/OUTPA TIENT VISIT, [facility], [address], [place], [place], [address], [place] tel:[phone] [facility] GERD (chief complaint) anxiety (chief complaint) GERDGeneralized anxiety disorderBipolar disorder, unspecified 3 Sarmad Escudero [address], [address], [place], [place], [address] , [place]. tel:[phone] Referring Provider: Radha Keane [address], [place], [place], [address]. tel:[phone] OFFICE/OUTPA TIENT VISIT, [facility], [address], [place], [place], [address], [place] tel:[phone] [facility] headache (chief complaint) anxiety (chief complaint) GERD (chief complaint) GERDHeadacheGeneral ized anxiety disorder 3 Sarmad Escudero [address], [address], [place], [place], [address] , [place]. tel:[phone] Referring Provider: Rdaha Keane [address], [place], [place], [address]. tel:[phone] OFFICE/OUTPA TIENT VISIT, [facility], [address], [place], [place], [address], [place] tel:[phone] [facility] Headache (chief complaint) abdominal pain (chief complaint) HeadacheGeneralized anxiety disorderGERD 3 Sarmad Escudero [address], [place], [place], [address] , [place]. tel:[phone] Referring Provider: Barrett Bañuelos, [address], [place], [place], [address]. tel:[phone] OFFICE/OUTPA TIENT VISIT, [facility], [address], [place], [address], [place] tel:[phone] [facility] abdominal pain (chief complaint) headache (chief complaint) anxiety (chief complaint) insomnia (chief complaint) Abdominal PainHeadacheGeneral ized anxiety disorderInsomnia, Other 3 Sarmad Hyde. [address], [place], [place], [address] , [place]. [phone] Referring Provider: Barrett Bañuelos, [address], [place], [place], [address]. tel:[phone] OFFICE/OUTPA TIENT VISIT, [facility], [address], [place], [place], [address], [place] tel:[phone] [facility] epilpesy (chief complaint) anxiety (chief complaint) Epilepsy, unspecified, without mention of intractable epilepsyGeneralized anxiety disorder 3 Sarmad Hyde. [address], [place], [place], [address] , [place]. tel:[phone] Referring Provider: Radha Keane [address], [place], [address]. tel:[phone] OFFICE/OUTPA TIENT VISIT, [facility], [address], [place], [place], [address], [place] tel:[phone] [facility] anxiety (chief complaint) bipolar (chief complaint) back pain (chief complaint) Generalized anxiety disorderMajor depressive affective disorder, single episode, mild degreeLumbago 2 Sarmad Hyde. [address], [place], [place], [address] , [place]. tel:[phone] Referring Provider: Radha Keane [address], [place], [place], [address]. tel:[phone] OFFICE/OUTPA TIENT VISIT, [facility], [address], [place], [address], [place] tel:[phone] [facility] syncope (chief complaint) depression (chief complaint) Syncope and collapseGeneralized anxiety disorderBipolar disorder, unspecified 2 Sarmad Hyde. [address], [place], [place], [address] , [place]. tel:[phone] Referring Provider: Barrett Bañuelso, [address], [place], [place], [address]. tel:[phone] OFFICE/OUTPA TIENT VISIT, [facility], [address], [place], [address], [place] tel:[phone] [facility] tobacco (chief complaint) Tobacco Abuse 2 Sarmad Hyde. [address], [place], [place], [address] , [place]. tel:[phone] Referring Provider: Radha Keane [address], [place], [place], [address]. tel:[phone] OFFICE/OUTPA TIENT VISIT, [facility], [address], [place], [address], [place] tel:[phone] [facility] anxiety (chief complaint) epilepsy (chief complaint) EPILEPSY-UNSPECIFIE DLumbagoMajor depressive affective disorder, single episode, mild degreeSyncope and collapse 2 Sarmad Hyde. [address], [place], [place], [address] , [place]. tel:[phone] Referring Provider: Radha Keane [address], [place], [place], [address]. tel:[phone] OFFICE/OUTPA TIENT VISIT, [facility], [address], [place], [place], [address], [place] tel:[phone] [facility] viral (chief complaint) Viral Infection, Unspecified 2 Sarmad Hyde. [address], [place], [place], [address] , [place]. [phone] Referring Provider: Barrett Bañuelos, [address], [place], [place], [address]. tel:[phone] OFFICE/OUTPA TIENT VISIT, [facility], [address], [place], [place], [address], [place] [phone] [facility] back pain (chief complaint) anxiety (chief complaint) LumbagoGeneralized anxiety disorderGeneralized convulsive epilepsy, with intractable epilepsy 2 Sarmad Hyde. [address], [place], [place], [address] , [place]. [phone] Family History Family Member Type Diagnosis Age At Onset Mother Problem (finding) Cancer, lung Father Problem (finding) Alive and well Mother Problem (finding) Cancer, colon Payers Payer name Insurance type Covered alliance party ID Authoriza tion(s) No Information Social History Type Description Quantity Date Captured Comments Alcohol Use Details Unknown Caffeine Use Details Unknown Tobacco Use Status Smoking Status No Information Sex Female Chief Complaint And Reason For Visit No Information Plan Of Treatment Date Type Action Status Goal Td vaccine. Due on 17 due Goal Tdap. Due on due Goal Pap/HPV testing. Due on due Goal Depression screening. Due on due Goal Td vaccine. Due on 17 due Goal Tdap. Due on due Goal Pap/HPV testing. Due on due Goal Depression screening. Due on due Goal Td vaccine. Due on 16 due Goal Tdap. Due on due Goal Pap/HPV testing. Due on due Goal Depression screening. Due on due Goal Td vaccine. Due on 16 due Goal Tdap. Due on due Goal Pap/HPV testing. Due on due Goal Depression screening. Due on due Goal Td vaccine. Due on due Goal Tdap. Due on due Goal Pap/HPV testing. Due on due Goal Depression screening. Due on due Goal Td vaccine. Due on due Goal Tdap. Due on due Goal Pap/HPV testing. Due on due Goal Depression screening. Due on due Goal Td vaccine. Due on 16 due Goal Tdap. Due on due Goal Pap/HPV testing. Due on due Goal Depression screening. Due on due Goal Td vaccine. Due on 16 due Goal Tdap. Due on due Goal Pap/HPV testing. Due on due Goal Depression screening. Due on due Goal Td vaccine. Due on 16 due Goal Tdap. Due on due Goal Pap/HPV testing. Due on due Goal Depression screening. Due on due Goal Td vaccine. Due on 16 due Goal Tdap. Due on due Goal Pap/HPV testing. Due on due Goal Depression screening. Due on due Goal Td vaccine. Due on 16 due Goal Tdap. Due on due Goal Pap/HPV testing. Due on due Goal Depression screening. Due on due Goal Td vaccine. Due on 16 due Goal Tdap. Due on due Goal Pap/HPV testing. Due on due Goal Depression screening. Due on due Goal Td vaccine. Due on due Goal Tdap. Due on due Goal Pap/HPV testing. Due on due Goal Depression screening. Due on due Goal Td vaccine. Due on 15 due Goal Tdap. Due on due Goal Pap/HPV testing. Due on due Goal Depression screening. Due on due Goal Td vaccine. Due on 15 due Goal Tdap. Due on due Goal Pap/HPV testing. Due on due Goal Depression screening. Due on due Goal Td vaccine. Due on 15 due Goal Tdap. Due on due Goal Pap/HPV testing. Due on due Goal Depression screening. Due on due Goal Td vaccine. Due on 15 due Goal Tdap. Due on due Goal Pap/HPV testing. Due on due Goal Depression screening. Due on due Goal Td vaccine. Due on due Goal Tdap. Due on due Goal Pap/HPV testing. Due on due Goal Depression screening. Due on due Goal Td vaccine. Due on due Goal Tdap. Due on due Goal Pap/HPV testing. Due on due Goal Depression screening. Due on due Goal Tobacco cessation counseling completed Goal Tobacco cessation counseling completed Goal Tobacco cessation counseling completed Goal Tobacco cessation counseling completed Goal Tobacco cessation counseling completed Goal Tobacco cessation counseling completed Goal Tobacco cessation counseling completed Goal Tobacco cessation counseling completed Goal Tobacco cessation counseling completed Goal Tobacco cessation counseling completed Goal Tobacco cessation counseling completed Goal Tobacco cessation counseling completed Goal Tobacco cessation counseling completed Goal Tobacco cessation counseling completed Goal Tobacco cessation counseling completed Goal Tobacco cessation counseling completed Goal Tobacco cessation counseling completed Goal Tobacco cessation counseling completed Goal Tobacco cessation counseling completed Goal Tobacco cessation counseling completed Goal Tobacco cessation counseling completed Goal Tobacco cessation counseling completed Goal Tobacco cessation counseling completed Goal Tobacco cessation counseling completed Goal Tobacco cessation counseling completed Goal Tobacco cessation counseling completed Goal Tobacco cessation counseling completed Goal Tobacco cessation counseling completed Goal Tobacco cessation counseling completed Goal Tobacco cessation counseling completed Goal Tobacco cessation counseling completed Goal Tobacco cessation counseling completed Goal Tobacco cessation counseling completed Goal Tobacco cessation counseling completed Goal Tobacco cessation counseling completed Referral Ordered: Lyssa Aparicio MD (related to Rheumatoid arthritis with rheumatoid factor, unspecified) ordered Referral Referred To: Lyssa Aparicio MD [address] [place], [place], [address] Ordered: Referrals: Lyssa Aparicio MD. Evaluate and treat ordered Referral Ordered: MRI ABDOMEN W/O & W/DYE ordered Referral Ordered: Faisal Wset (related to Pain in unspecified joint) ordered Referral Referred To: [facility]
[address] [place], [phone] Ordered: Referrals: [facility]. Evaluate and treat ordered Referral Ordered: CT ABDOMEN&PELVIS W/CONTRAST ordered Referral Ordered: DOPPLER ECHO EXAM, HEART ordered Referral Ordered: Surgery (related to Abdominal pain) ordered Referral Ordered: Gastroenterology (related to Other specified diseases of biliary tract) ordered Referral Ordered: Referrals: Surgery. Evaluate and treat ordered Referral Ordered: NUC MED HIDA (HEPATOBILIARY) SCAN ordered Referral Ordered: DXA BONE DENSITY, AXIAL ordered Referral Ordered: Gastroenterology (related to Abdominal Pain) ordered Referral Ordered: Referrals: Gastroenterology. Evaluate and treat ordered Referral Ordered: MRI BRAIN W/O & W/DYE ordered Referral Ordered: COLONOSCOPY AND BIOPSY ordered Referral Ordered: MAMMOGRAM, SCREENING ordered Referral Ordered: HEARING TEST, PURE TONE, AIR ordered Referral Ordered: [facility]astroentergy (related to GERD) ordered Referral Ordered: US EXAM, ABDOM, COMPLETE ordered Referral Ordered: Referral: [facility]. Evaluate and treat. ordered Referral Ordered: UPPER GI W/ KUB ordered History Of Present Illness Encounter Date Complaint History Of Prese nt Illness high RA Pt has high RA. Pt has vague mulitple joint pain Pt states that Dr. Simon does not take new pt until next year lft Pt had repeat lF t which is all normal. Pt had normal ultrasound. pt does not drink alcohol. pt denies any abd pain. Pt does not have hepatitis B12 Pt had repeat b1 2 and LD which are all normal. pt does not use supplement PHysical Pt needs annual physical pt has chronic anxiety and depression and bipolar. Pt takes prozac and xanax and doing ok. Pt sees psychiatrist Pt denie sany suicidla o rhomicidal thought Pt denies any crying spells Pt has chronic low back pain. Pt sees pain managment and she takes percocet TID and also fentanyl patch. Pt recenlty had lab done which showed high b12 and LFT and RA Pt denies any alcohol use or any IV drug use. Pt does not use any vitamin supplement. Pt denies any abd pain. Pt has high Ra Pt states that she does have mulitplie joint pain chronically. palpitation1 Pt has cardiac p alpitation intermittently. pt denies any chest pain. Pt had benign echo except for right ventricle enlargement. Holter pending. weight loss1 Pt has weight lo ss. Pt had normal CT of chest, abdomen and pelvis. Pt had normal lab work. Pt denies any gERD or abd pain now weight loss1 Pt has been losi ng weight Pt had normal EGD last year Pt is off nexium now Pt denies any abd pain or any GERD symptoms. Pt has no appetite. Pt denies any abd pain palpitation1 Pt states taht s he feels blurred vision when watching TV, palpitation of the chest, poor sleep for 3 months Pt is concerned about thyroid. pt is on abilify and xanax now by psychiatrist Pt states that her mom has thyroid disease. Pt also feels mild dizziness but not orthostatic. Pt feels fatigue anxiety1 Pt has chronic a nxeity and depression. Pt has bipolar Pt used to take xanax Pt is seeing psychiatrist now and she told me she was told to stop xanax and try klonpin and mood stabilizer. Pt states that klonpin is not working and she wants her xanax back. Pt told me her psychiatrist will not start her back on xanax. Pt states that the mood stabilizer does not work from psychiatrist Pt feels anxiouis Pt denies any suicidal or homicdial thought anxiety1 Pt has chronic a nxiety and depression. Pt takes prozac and xanax pt denies any suicidal thought Pt denies any crying spells GERD Associated sympt oms include back pain and heartburn. Pertinent negatives include blood in stool, constipation, diarrhea, dyspnea, fever, hematuria, nausea, rash, vaginal discharge and vomiting.Additional information:Pt has GERD. Pt had benign EGD recenlty. Pt takes zantac and nexium and doing ok. Pt denies any abd pain. anxiety1 Pt has chronic a nxiety and depression. Pt takes zoloft and xanax and doing ok. Pt deneis any suicidal or homicdialt hought. Pt denies any crying spells GERD1 Pt has chronic G ERD. Pt is seeing GI for pancreatic duct dilation. Pt is taking nexium and Zantac and doing ok. Pt still has not done bone density or mammogram yet Anxiety1 Pt has chronic a nxiety anddepression. Pt denies any suicidal thought. Pt takes xanax and zoloft PRN and doing ok Pt denies anyc rying spells. abd pain1 Pt has right upp er quadrant abd pain. Pt is seeing GI. Pt just had her gallbladder removed 3 days ago. Pt doing ok post op. Pt is able to pass gas but has not had BM yet. Pt denies any nasusea, vomiting HLP Pt has mild HLP. Pt is on low fat and low carb diet. Pt has low D and also elevated B12 anxiety1 Pt has chronic a nxiety and depression. Pt takes zoloft and xanax and doing ok. Pt denies any worsening symptoms. Pt denies any crying spells GERD1 Pt has chornic G ERD and she takes nexium and zantac. Pt denies any GERD symptmos. Pt has chornic nauea, GI will do EGD soon. Pt also will be refered to [facility] for gallbladder polyp. Pt denies any wrosening pain headache1 Pt is seeing chirag whittaker. Pt will try botox. Pt still working with neurology for MS? abdominal pain abd pain1 Pt has chronic a bdomianal pain. Pt has chronic nauea, vomiting. Pt is seeing GI and just seen surgeon .Pt has adenomyomatosis but no surgery per surgeon. Pt states that reglan does not help Pt denies any acute pain anxiety1 Pt has chronic a nxiety and depression. Pt denies any suicidal or homicdial thought Pt takes zoloft and xanax. Pt denies any crying spells. Pt denies any feeling of hopelessness anxiety1 Pt has chronic a nxiety and depression. Pt takes zoloft and xanax and doing ok Pt denies any suiciadl or homicidal thought. Pt denies any crying spells abd pain Pt recently admi [facility] to hospital for abdominal intussusception which is resolved per surgery and no emergency surgery required in the hospital. pt was sent home and told to follow up with me. Pt still has mild diffuse abd pain and nausea. Pt denies any vomiting. Pt is passing gas and she has normal BM. Pt had dilated common bile duct. Pt has not done HIDA scan yet. Pt has not done bone density yet anxiety1 Pt has chronic a nxiety and depression. Pt takes zoloft and xanax and doing ok. Pt denies any suicidal thought Pt denies any crying spells GERD1 Pt has chronic g ERD and she is on nexium and zantac. Pt had benign eGD. Pt still has not done MRCP or enema yet. Pt has appointment with GI next week. Pt states that she has not been able to keep anything down for one week with persistent vomiting Pt has intermittent midepigastric pain. wrose with food GERD1 Pt has chronic G ERd Pt takse nexium and zatnac and doing ok. Pt denies any abd pain. Pt has not done bone density yet. headache1 Pt was on deapko te but she stopped on her own. Pt unable to get more imitrex due to insurance issue. Pt states that fioricet PRN which is not working. Pt has daily headache Pt has MRA of brain done and result pending Anxiety1 pt has chronic a nxiety and depression. Pt takes xanax and zoloft Pt states that buspar does not work. Pt still has chronic anxiety and panic attacks Pt denies any crying spells or any feeling of hopelessness. Pt is trying to get into a psychiatrist postmenopausal1 Pt is postmenopa usal Pt had total hysterectomy due to cervical change in the past. Pt is out of estradiol and she has been feeling more anxious and has a lot of night sweats and mood is worse. Pt has appointment with [facility] next month headacahe1 Pt has chronic m igraine heaeache Pt seen neurology recently and was told she needs MRA and she may have MS? Pt has throbbing headaache daily. pt was prescribed some prophylactic med but she does not know the name of it She just knew that she has to take daily. Pt told me her neurology wants me to continue imitrex PRN. Pt states that imitrex helps but the medication from her neurlogy does not work GERD1 Pt had benign EG D. Pt had colonoscopy done but not cleaned well. Pt was told to do double contrast enema and repeat colonoscopy in 1-2 years. Pt has constant GERD symptoms without nexium and zantac Anxiety1 Pt has chronic a nxiety and depression. Pt takes xanax, buspar and zoloft. Pt denies any suicidal thought. Pt doing ok Physical Pt needs annual physical. Pt has chronic migraine headache. Pt has abnormal MRI of brain. Pt takes imitrex PRN which helps .Pt has headache daily PT denies any wrosening heaeache. Pt has chronic anxiety and deprssion. Pt atkes xana and zoloft and buspar and doing ok. Pt denies any sucidal thought. Pt has chronic abd pain. Pt has diffuse pain. Pt had normal ultrasound recenlty. Pt will have EGD and colonsocopy by Dr. Sloan later this month Pt denies any other complaints headache Additional infor mation: Pt has chronic headache. Pt failed mulitple prophylactic meds. Pt has abnormal MRI. Pt denies any worsening headache. Anxeity Pt has chronic a nxiety and depression. Pt denies any sucidal thought. Pt atkes zoloft, xanax and buspar. abd pain Pt has chronic m idepigastric pain and she has not done ultasound yet. Pt just seen GI and will have panendoscopy and ultasound through GI. Pt denies any worsening pain. vomiting Associated sympt oms include back pain, heartburn and vomiting. Pertinent negatives include blood in stool, constipation, diarrhea, dyspnea, fever, hematuria, nausea, rash, vaginal discharge, weight gain and weight loss.Additional information:Pt has freuqnet nausea and vomtiing. Pt has GERD. Pt take nexium and zantac and she denies any heartburn. Pt has diarrea and constipation but no blood in stool. Pt has chronic and vague diffuse abdominal pain. Anxiety The patient pres ents with anxious/fearful thoughts but denies fatigue. The Anxiety is associated with headache and vomiting. The patient denies any nausea, urinary frequency and weight gain. Additional information: Pt has chrnoic anxiety and depression. Pt takes zoloft and buspar and xanax. Pt doing ok. Pt denies any suicdial thought. headache Associated sympt oms include vomiting. Pertinent negatives include memory loss. Additional information: Pt has chornic headache. Pt c.o throbbing headache. Pt has not done MRI yet. Pt denies any aucte or worsening headache. Imitrex does help. postmeno Pt had history o f total hystercomty. Pt takes estrodial. Her [facility] no longer takes her insurance. Pt needs refilled. Pt is trying to find [facility] now. Pt has vasomotor and mood disorder when not taking estrodial Anxeity Pt has chronic a nxiety and depression. Pt takes zoloft and buspar and xanax. pt states that buspar helps. Pt denies any suicidal thought headache Additional infor mation: Pt has chronic migrane heache. Pt c/o throbbing headache wit nauea, and photophobia. Pt failed topamax, depakote and propranolol. Headache is getting worse. Imitrex helsp. Pt denies any head injury. headache Additional infor mation: Pt has chronic and frequent migrane headahe Pt notices throbbing pain .Pt denies any head injury. Pt has photophobia and nauea with headache Imtirex does help Pt has headche 3-4 per months. Anxiety Additional infor mation: Pt has chronic anxiety and depression and severe panic attacks. Pt takes zoloft, buspar and also xanax. Pt doing ok. Pt denies any suicidal thought. Instructions Date Instruction Additional Infor mation Quit smoking Related to Liver disease Weight management Related to Rasheeda er disease Quit smoking Related to Encou nter for general adult medical exam w abnormal findings self relaxation technique, exerc ise Related to Headache education about exer cise and stretching Related to Lumbago education about exer cise and stretching Related to Lumbago education about post ure and also adequate rest Related to Lumbago Assessments Type Assessment Date No Information
[2024-11-03] VITALS (11 sets, daily range): BP systolic 101–122; BP diastolic 63–86; PULSE 83; RESP 18; TEMP 36.4; O2SAT 88–100
--- NOTE | ~2024-11-03 | CT_ITS ---
EXAMINATION: CT abdomen pelvis w con DATE: 11/03/2024 20:12 INDICATION: Abdominal pain and nausea TECHNIQUE: Computed tomography (CT) of the abdomen and pelvis was performed with 100 mL Omnipaque-350 intravenous contrast. Automated exposure control and iterative reconstruction technique were employed. The dose-length product was 340.63 mGy-cm. COMPARISON: 04/12/2015 FINDINGS: Mild emphysema. Mild discoid atelectasis/scarring in the left lower lobe and lingula. Heart size is normal. No pericardial or pleural effusion. Small sliding-type hiatal hernia with postoperative change of prior Whitney-en-Y gastric bypass procedure. Chronic mild dilation of the common bile duct and mild central intrahepatic biliary ductal dilation likely related to prior cholecystectomy with surgical clips the gallbladder fossa. Liver, spleen, pancreas and bilateral adrenal glands are normal. There is a geographic region of marked decreased parenchymal enhancement at the posterior mid to lower left kidney without significant perinephric stranding, stranding at the hilum or evident urothelial enhancement at the renal pelvis and would favor infarct over infection. There is focal mild dilation of the short segment of small bowel in the left abdomen likely related to the jejunojejunal anastomosis. No bowel obstruction. Bladder is normal. The uterus is not identified and has likely been surgically resected. No free intraperitoneal gas or fluid. No pathologically enlarged abdominal or pelvic lymphadenopathy. L3-L5 instrumented anterior and posterior spinal fusion with interbody bone graft cages at both levels and bilateral vertical eliud and pedicle screw fixations. Chronic sclerotic left supra-acetabular bone island. IMPRESSION: 1. Geographic region of marked decreased parenchymal enhancement of a portion of the posterior mid to lower left kidney without additional findings to suggest infection and would favor infarct of a left renal branch artery. Reviewed, dictated and finalized at location A. IMPRESSION: 1. Geographic region of marked decreased parenchymal enhancement of a portion o f the posterior mid to lower left kidney without additional findings to suggest infection and would favor infarct of a left renal branch artery.
[2024-11-03 19:47] LABS: Hematocrit 41.9 % (37.0-47.0); Hemoglobin 13.2 g/dL (12.0-15.0); Immature Granulocyte Percent A 0.3 % (0-0.5); Lymphocytes Absolute Auto 1.74 K/mm3 (0.9-3.2); Mean Corpuscular HGB Conc 31.5 g/dl (32-36); Mean Corpuscular Hemoglobin 28.1 pg (26-34); Mean Corpuscular Volume 89.3 fl (80-100); Nucleated Red Blood Cells Absolute Auto 0.000 K/mm3 (0.0-0.012); Nucleated Red Blood Cells Perc 0.0 % (0.0-0.2); Platelet Count Result 225 k/mm3 (150-375); Red Blood Count 4.69 M/mm3 (4.2-5.4); White Blood Count 12.2 K/mm3 (4.5-10.0)
[2024-11-03 19:52] LABS: Add Urine Microscopic? YES; Appearance Urine Clear (Clear); Glucose Urine UA Negative (Negative); Leukocyte Esterase Ur Trace LEU/UL (Negative); Nitrate Urine Negative (Negative); Non Pathogenic Casts 0-2; Specific Grav Ur 1.026 (1.001-1.035)
[2024-11-03 20:00] LABS: Alanine Aminotransferase 19 U/L (6-35); Albumin Level 4.1 g/dL (3.5-5.1); Alkaline Phosphatase 62 U/L (38-126); Anion Gap 7 mmol/L (4-12); Aspartate Amino Transferase 34 U/L (14-36); Bilirubin,Total 0.5 mg/dL (0.2-1.3); Blood Urea Nitrogen 13 mg/dL (7-17); Calcium 9.0 mg/dL (8.4-10.2); Carbon Dioxide 25 mmol/L (22-30); Chloride 104 mmol/L (98-107); Estimated CRCL calculation 59 ml/min; Estimated Glomerular Filt Rate > 60; Glucose 98 mg/dL (65-110); Lipase 61 U/L (23-300); Potassium 4.4 mmol/L (3.4-5.0); Sodium 136 mmol/L (137-145); Total Protein 6.9 g/dL (6.3-8.2)
--- NOTE | 2024-11-03 20:01 | ED.ABDPAIN ---
HPI - Abdominal Pain General Chief Complaint: Abdominal Pain Stated Complaint: N/V, ABD PAIN, HX OF HERNIA Time Seen by Provider: 11/03/24 19:31 Source: patient Mode of arrival: ambulatory Limitations: no limitations History of Present Illness HPI narrative: This is a 58-year-old female that presents to the emergency department for abdominal pain. Ongoing over the last couple hours. Reports associated nausea. Reports that the pain is around her belly button radiating into her lower abdomen and into her left flank. Denies fevers, dysuria, diarrhea. Related Data Home Medications ?Medication ?Instructions ?Recorded ?Confirmed ?Last Taken ?Type aripiprazole 10 mg tablet 10 mg PO DAILY 07/22/22 07/22/22 Unknown History buspirone 5 mg tablet 5 mg PO TID 07/22/22 07/22/22 Unknown History desvenlafaxine succinate 100 mg 100 mg PO DAILY 07/22/22 07/22/22 Unknown History tablet,extended release 24 hr methocarbamol 500 mg tablet 500 mg PO BID 07/22/22 07/22/22 Unknown History oxycodone-acetaminophen 10 mg-325 1 tablet PO TID 07/22/22 07/22/22 Unknown History mg tablet trazodone 100 mg tablet 10 mg PO HS 07/22/22 07/22/22 Unknown History Allergies Allergy/AdvReac Type Severity Reaction Status Date / Time codeine Allergy Unknown Hives / Verified 07/22/22 13:26 Red Face morphine Allergy Unknown Swelling Verified 07/22/22 13:26 Penicillins Allergy Unknown Hives / Verified 07/22/22 13:26 Red Face Review of Systems Review of Systems: All systems reviewed & are unremarkable except as noted in HPI and below PMFSH Past Medical History Medical History Bipolar disorder Surgical History Surgical History History of lumbar surgery Social History Social History Smoking status: Current every day smoker Gender identity (if verbalized by the patient): Female Exam Narrative: GENERAL: Uncomfortable, well-nourished, and in no acute distress. HEAD: Normocephalic, atraumatic. EYES: EOMI. CHEST: Clear to auscultation. No respiratory distress. No wheezes rales or rhonchi HEART: Regular rate and rhythm. No murmur heard. Normal peripheral pulses. ABDOMEN: Soft, nondistended, normal active bowel sounds. Mild tenderness to palpation throughout the lower abdomen, without guarding EXTREMITIES: Normal range of motion. No edema. SKIN: Warm, dry, no rash. NEURO: No focal deficits. Alert and oriented x3. PSYCH: Normal mood and affect Course Course Emergency Course: Patient does not wish to stay in the hospital for any further evaluation or management. She will be signing out AMA Consultations Consultation #1: Spoke with Dr. Cooley, vascular surgery with [facility] about patient and workup. Recommends further embolic workup (EKG, echocardiogram), no intervention would be needed at this time Hospitalist here still does not accept admission Date: 11/03/24 Consultation #2: Spoke with [facility] vascular surgery, also reports there is no need for transfer and there would be no acute intervention Date: 11/03/24 Vital Signs Vital signs: Vital Signs Temperature 97.6 F 11/03/24 19:22 Pulse Rate 83 11/03/24 19:22 Respiratory Rate 18 11/03/24 19:22 Blood Pressure 122/78 11/03/24 19:22 Pulse Oximetry 99 11/03/24 19:22 Oxygen Delivery Room Air 11/03/24 19:22 Temperature 97.6 F 11/03/24 19:22 Pulse Rate 83 11/03/24 19:22 Respiratory Rate 18 11/03/24 19:22 Blood Pressure 100/65 11/04/24 00:00 Pulse Oximetry 94 11/04/24 00:01 Oxygen Delivery Room Air 11/03/24 19:22 MDM - Abdominal Pain MDM Narrative Medical decision making narrative: Patient presents to the emergency department for lower abdominal pain/left flank pain. She is afebrile and nontoxic appearing. Her vitals are stable. CBC with mild leukocytosis to 12.2. Metabolic panel with normal kidney function. Urine with 6-10 white blood cells, but moderate squamous epithelial cells. Likely contaminated catch. 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 I consulted to vascular surgery with [facility], there is no intervention needed for this patient at this time. She needs a further thrombotic workup. Despite this the hospitalist here did not accept admission. [facility] and [facility] both declined transfer as they did not think it was necessary. Patient decided she did not wish to stay in the hospital. She signed out AMA. She was encouraged to have close follow-up with her primary provider and return at any time for further evaluation Differential Diagnosis Differential diagnosis: Likely calculus of kidney, diverticulitis and other (SBO, renal artery infarct) Lab Data Attestation: I reviewed the patient's lab results. 11/03/24 19:41 11/03/24 19:41 Labs: Lab Results 11/03/24 Range/Units 19:41 WBC 12.2 H (4.5-10.0) K/mm3 RBC 4.69 (4.2-5.4) M/mm3 Hgb 13.2 (12.0-15.0) g/dL Hct 41.9 (37.0-47.0) % MCV 89.3 (80-100) fl MCH 28.1 (26-34) pg MCHC 31.5 L (32-36) g/dl RDW 14.6 H (11.5-14.5) % Plt Count 225 (150-375) k/mm3 MPV 10.9 H (7.4-10.4) fl Immature Gran % (Auto) 0.3 (0-0.5) % Neut % (Auto) 78.5 H (45.5-73.1) % Lymph % (Auto) 14.3 L (18.3-44.2) % [place] % (Auto) 5.7 (2.6-8.5) % Eos % (Auto) 0.8 (0-4.4) % Baso % (Auto) 0.4 (0.2-1.2) % Lymph # (Auto) 1.74 (0.9-3.2) K/mm3 [place] # (Auto) 0.7 H (0.1-0.6) K/mm3 Eos # (Auto) 0.1 (0-0.3) K/mm3 Baso # (Auto) 0.1 (0.0-0.1) K/mm3 Abs Immat Gran (auto) 0.04 H (0.00-0.031) K/mm3 Absolute Neuts (auto) 9.5 H (1.3-6.7) K/mm3 Absolute Nucleated RBC 0.000 (0.0-0.012) K/mm3 Nucleated RBC % 0.0 (0.0-0.2) % Sodium 136 L (137-145) mmol/L Potassium 4.4 (3.4-5.0) mmol/L Chloride 104 (98-107) mmol/L Carbon Dioxide 25 (22-30) mmol/L Anion Gap 7 (4-12) mmol/L BUN 13 (7-17) mg/dL Creatinine 0.77 (0.7-1.0) mg/dL Estim Creat Clear Calc 59 ml/min Estimated GFR > 60 (59 - ) Glucose 98 (65-110) mg/dL Calcium 9.0 (8.4-10.2) mg/dL Total Bilirubin 0.5 (0.2-1.3) mg/dL AST 34 (14-36) U/L ALT 19 (6-35) U/L Alkaline Phosphatase 62 (38-126) U/L Total Protein 6.9 (6.3-8.2) g/dL Albumin 4.1 (3.5-5.1) g/dL Lipase 61 (23-300) U/L Urine Color Yellow (Yellow) Urine Appearance Clear (Clear) Urine pH 5.0 (5.0-9.0) Ur Specific [place] 1.026 (1.001-1.035) Urine Protein Negative (Negative) mg/dL Urine Glucose (UA) Negative (Negative) mg/dL Urine Ketones 3+ H (Negative) mg/dL Ur Blood (Man) Negative (Negative) Urine Nitrate Negative (Negative) Urine Bilirubin Negative (Negative) Urine Urobilinogen 1.0 (<2.0) mg/dL Leukocyte Esterase Rfl Trace H (Negative) LIZA/UL Urine RBC 3-5 H (0-2) /hpf Urine WBC 6-10 H (0-3) /hpf Ur Squamous Epith Cells Moderate (Few) /hpf Urine Bacteria 1+ H /hpf Urine Casts 0-2 Imaging Data Radiologist's impression: ITS Impressions Abdomen/Pelvis CT 11/03/24 20:14 IMPRESSION: 1. Geographic region of marked decreased parenchymal enhancement of a portion of the posterior mid to lower left kidney without additional findings to suggest infection and would favor infarct of a left renal branch artery. 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 It is recommended that you get more of a workup to figure out why this happened. Please follow up with your primary doctor or return to the ER Patient Language: Welsh Prescriptions: No Action methocarbamol 500 mg tablet 500 mg PO BID buspirone 5 mg tablet 5 mg PO TID oxycodone-acetaminophen 10-325 mg tablet 1 tablet PO TID trazodone 100 mg tablet 10 mg PO HS aripiprazole 10 mg tablet 10 mg PO DAILY desvenlafaxine succinate 100 mg tablet extended release 24 hr 100 mg PO DAILY Follow-up/Referrals: Fadumo,DO Sundeep [Primary Care Provider]
--- OUTSIDE RECORDS SUMMARY | 2024-11-03 20:27 | XMS_ITS | Patient Health Record ---
Author Organization [facility] Address [address] [facility] [address] [place] [address] Support Name Relationship Address Phone JORDI HERRERA Guarantor Unknown [phone] Reason For Referral No Information Plan Of Treatment No Information
--- OUTSIDE RECORDS SUMMARY | 2024-11-03 20:27 | XMS_ITS | Encounter Summary ---
Author Organization [facility] Address [facility] [place] [address] Care Team Providers Care Parent Coach Name Role Phone Sundeep Thorne DO Primary Care Provider + Sundeep Thorne DO Unavailable [phone] Encounter Details Date Type Department Care Team (Late st Contact Info) Description 01/05/2020 [employer]O [employer] Message Enc [facility] Medical Group Family & Internal Medicine [facility] [address] [place] [address] Sundeep Thorne DO [address] [place] [address] Medication Questions Social History Tobacco [...] Rule Out 01/02/2020 01/03/2020 01/17/2020 9:28 AM COSMETIC SURGEON COVID-19 Rule Out 11/23/2020 11/23/2020 11/23/2020 10:47 AM CDT COVID-19 Rule Out 12/23/2021 12/23/2021 12/30/2021 12:33 AM CDT Assessment Noted Time PHQ-9 Depression Total Score: 3 05/18/19 19 1:40 PM CDT documented as of this encounter Care Teams Parent Coach Relationship Specialty Start Date End Date Sundeep Thorne DO [address] [place] [address] PCP - General FAMILY PRACTICE 05/04/18 Sundeep Thorne DO [address] [place] [address] PCP - Med Group - [facility] Attributed Provider 05/09/19 03/09/20 documented as of this encounter
--- OUTSIDE RECORDS SUMMARY | 2024-11-03 20:27 | XMS_ITS | Encounter Summary ---
Author Organization [facility] Address [address] [place] [address] Care Team Providers Care Supervisor Pairing And Inspecting Name Role Phone Sundeep Thorne DO Primary Care Provider + Encounter Details Date Type Department Care Team (Late st Contact Info) Description 02/09/2024 [employer] Message Enc [facility] Medical Group Family & Internal Medicine [facility] [address] [place] [address] Sundeep Thorne DO [address] [place] [address] LDCT chest results Social History Tobacco Use Types Packs/Day Years Used Date Smoking Tobacco: Every Day Cigarettes 1 34 Started: 08/18/1988; Last attempted to quit: 08/18/2022 Passive Smoke Exposure: Current Smokeless Tobacco: Never Comments:Provider to staff genetic counselor not a smoker Alcohol Use Standard [...] documented as of this encounter Care Teams Supervisor Pairing And Inspecting Relationship Specialty Start Date End Date Sundeep Thorne DO [address] [place] [address] PCP - General FAMILY PRACTICE 05/04/18 documented as of this encounter
--- OUTSIDE RECORDS SUMMARY | 2024-11-03 20:27 | XMS_ITS | Clinical Summary ---
Author Organization [facility] Address [address] [place] [address] Care Team Providers Care Human Resources Department Supervisor Name Role Phone Barrett Bañuelos MD Primary Care Provider [phone] Allergies Active Allergy Reactions Criticality Noted Date [...] on file Legal Sex Female 6:54 PM BOLT THREADER Gender Identity Not on file Sexual Orientation Not on file Obstetrics History Last Filed Vital Signs Vital Sign Reading Time Taken Comments Blood Pressure 92/60 01/14/2017 1:24 PM BOLT THREADER Pulse 75 01/14/2017 1:24 PM BOLT THREADER Temperature 36.8 C (98.2 F) 01/14/2017 1:24 PM BOLT THREADER Respiratory Rate 16 01/14/2017 1:24 PM BOLT THREADER Oxygen Saturation 94% 01/14/2017 1:24 PM BOLT THREADER Inhaled Oxygen Concentration - - Weight 64.4 kg (142 lb) 01/14/2017 1:24 PM BOLT THREADER Height 157.5 cm (5' 2) 01/14/2017 1:24 PM BOLT THREADER Body Mass Index 25.97 01/14/2017 1:24 PM BOLT THREADER Plan of Treatment Not on file Insurance [facility] MEDIC[facility] [employer]VANTAGE Care Teams Human Resources Department Supervisor Relationship Specialty Start Date End Date Barrett Bañuelos MD PCP - General Family Medicine 12/17/16
--- OUTSIDE RECORDS SUMMARY | 2024-11-03 20:27 | XMS_ITS | Clinical Summary ---
Author Organization [facility] Address [address] [facility] [place] [address] Care Team Providers Care Filling Hauler Weaving Name Role Phone Sunny Pete MD Unavailable [phone] Steve Ramso MD Unavailable [phone] Barrett Bañuelos MD Primary Care Provider Source Comments [facility],non-owned Affiliates and Associated Physician Practices is amultiple site organization consisting of ambulatory clinics and hospital sitesin [place], [place], [place] and [place]. This disclosure is being madepursuant to the Care Everywhere program and may not contain all information available regarding this patient. Last updated 17.[facility] Allergies Active Allergy Reactions Criticality Noted Date [...] on file Legal Sex Female 11:54 AM DIRECTOR NURSES' REGISTRY Gender Identity Not on file Sexual Orientation Not on file Occupation Industry Job Start Date Job End Date Disabled Not on file Not on file Not on file Last Filed Vital Signs Vital Sign Reading Time Taken Comments Blood Pressure 88/60 01/28/2016 1:01 PM DIRECTOR NURSES' REGISTRY Pulse 68 01/28/2016 1:01 PM DIRECTOR NURSES' REGISTRY Temperature 36.4 C (97.6 F) 08/26/2011 8:00 AM CDT Respiratory Rate 12 01/28/2016 1:01 PM DIRECTOR NURSES' REGISTRY Oxygen Saturation 96% 08/26/2011 8:00 AM CDT Inhaled Oxygen Concentration - - Weight 53.1 kg (117 lb) 01/28/2016 1:01 PM DIRECTOR NURSES' REGISTRY Height 161.3 cm (5' 3.5) 01/28/2016 1:01 PM DIRECTOR NURSES' REGISTRY Body Mass Index 20.4 01/28/2016 1:01 PM DIRECTOR NURSES' REGISTRY Plan of Treatment Health Maintenance Due Date [...] season) 2023 DEPRESSION SCREENING 03/09/2024 INFLUENZA VACCINE (#1) 2024 11/26/2015 HIB VACCINE Aged Out No longer eligi [...] 4:51 PM 08/26/2011 11:40 PM Care Teams Filling Hauler Weaving Relationship Specialty Start Date End Date Barrett Bañuelos MD [address] [place] [id number] PCP - General 08/25/11 Sunny Pete MD Internal Medicine 08/28/10 Steve Ramos MD Referring Physician Physical Medicine and Rehabilitation 08/28/10
--- OUTSIDE RECORDS SUMMARY | 2024-11-03 20:27 | XMS_ITS | Encounter Summary ---
Author Organization [facility] Address [address] [place] [address] Care Team Providers Care Academic Physician Name Role Phone Sundeep Thorne DO Primary Care Provider + Encounter Details Date Type Department Care Team (Late st Contact Info) Description 01/06/2023 Espinela Message Enc [facility] Family & Internal Medicine [facility] [address] [place] [address] Sundeep Thorne DO [address] [place] [address] Mammogram Results Social History Tobacco Use Types Packs/Day Years Used Date Smoking Tobacco: Former Cigarettes 1 34 0 08/18/1988 - 08/18/2022 Passive Smoke Exposure: Current Smokeless Tobacco: Never Comments:Provider to cosmetic counselor Alcohol Use Standard Drinks/Week Comments No [...] documented as of this encounter Care Teams Academic Physician Relationship Specialty Start Date End Date Sundeep Thorne DO [address] [place] [id number] PCP - General FAMILY PRACTICE 05/04/18 documented as of this encounter
--- OUTSIDE RECORDS SUMMARY | 2024-11-03 20:27 | XMS_ITS | Clinical Summary ---
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 05/17/2018 Encounters Date Type Department Care Team Description 10/18/2024 Patient Outreach [facility] Family & Internal Medicine [address] [address] Gabbi Amato, LABORATORY IMMUNOLOGIST Quality Gap Closure (Mammmo completed 07/08/2024) from Last 3 Months Immunizations Immunization Administration Dates Next Due Flublok [...] uit: No; Counseling Given: Yes Comments:Provider to counseling services manager not a smoker Alcohol Use Standard Drinks/Week [...] Comments Blood Pressure 112/70 01/14/2024 1:33 PM INSTRUMENT SHOP SUPERVISOR Pulse 74 01/14/2024 1:33 PM INSTRUMENT SHOP SUPERVISOR Temperature 36.3 C (97.3 F) 01/14/2024 1:33 PM INSTRUMENT SHOP SUPERVISOR Respiratory Rate 18 01/14/2024 1:33 PM INSTRUMENT SHOP SUPERVISOR Oxygen Saturation 97% 01/14/2024 1:33 PM INSTRUMENT SHOP SUPERVISOR Inhaled Oxygen Concentration - - Weight 69.1 kg (152 lb 6.4 oz) 01/14/2024 1:33 P M INSTRUMENT SHOP SUPERVISOR Height 160 cm (5' 3) 01/14/2024 1:33 PM INSTRUMENT SHOP SUPERVISOR Body Mass Index 27 01/14/2024 1:33 PM INSTRUMENT SHOP SUPERVISOR Plan of Treatment Health Maintenance Due Date Last Done Comments Hepatitis B Vaccines (1 of 3 - 19+ 3-dose series) 11/07/1986 Lung Cancer Screening 02/17/2023 02/17/2022 PHQ-2 (Physician [place]) 03/09/2024 01/14/2024 Colorectal Cancer Screening Colonoscopy (10 Years) 12/26/2024 12/26/2014 Annual Physical 01/13/2025 01/14/2024, 12/07, 02/05/2022, Additional history exists DTaP, Tdap and Td Vaccines (1 - Tdap) 01/13/2025 Postponed from 11/07/1986 (Going to Outside Clinic) Zoster Vaccines (1 of 2) 01/13/2025 Pos tponed from 11/07/2017 (Going to Outside Clinic) Mammogram Screening 07/08/2025 07/08/2024, 07/08/2024, 10/31/2022, Additional history exists COVID-19 Vaccine ( season) 2074 02/05/2022, 05/17/2020 Postponed from 2023 [...] Associated Diagnosis Comments MAMMOGRAM GENERIC (SCAN ORDER) 07/08/2024 CT LUNG SCREENING Routine 02/17/2022 2:4 5 PM INSTRUMENT SHOP SUPERVISOR Nicotine dependence, cigarettes, uncomplicated HEPATITIS C ANTIBODY Routine 12/21/2020 8:46 AM CDT Need for hepatitis C screening test COLONOSCOPY/EGD GENERIC (SCAN ORDER) Routine 12/26/2014 from Last 3 Months or Most Recently Relevant to Health Maintenance Results * MAMMOGRAM GENERIC (SCAN ORDER) (07/08/2024) Anatomical Region Laterality Modality Other 07/08/2024 [facility] Scanned SCANNING Final Resu lt * CT LUNG SCREENING (02/17/2022 2:45 PM INSTRUMENT SHOP SUPERVISOR) Anatomical Region Laterality Modality Chest Computed Tomogra phy 02/19/2022 1:03 PM INSTRUMENT SHOP SUPERVISOR Impressions 02/19/2022 1:06 PM INSTRUMENT SHOP SUPERVISOR =====Impression:===== LUNG-RADS Category/Recommendation: Category 2 /Continue annual screening with LDCT in 12 months. Suggest follow up exam on or around 2023-02-17. LUNG-RADS category S: Negative, no new/unknown potentially significant incidental findings requiring urgent additional evaluation. Other Incidental Findings: As above. Thank you for choosing the [facility]'s Lung Screening Program. Ordered By: PIERO BERRIOS Interpreted By: Polo Byrd MD, 02/19/2022 1:03 PM Narrative 02/19/2022 1:06 PM INSTRUMENT SHOP SUPERVISOR Examination: Lung Screening Low-Dose Ct Thorax Without [...] mid to distal esophagus. Surgical changes of [id number] gastric bypass. Prior cholecystectomy. Degenerative changes arenoted. =====Impression:===== LUNG-RADS Category/Recommendation: Category 2 /Continue annual screeningwith LDCT in 12 months. Suggest follow up exam on or around 2023-02-17. LUNG-RADS category S: Negative, no new/unknown potentially significantincidental findings requiring urgent additional evaluation. Other Incidental Findings: As above. Thank you for choosing the [facility] Lung ScreeningProgram. Ordered By: PIERO BERRIOS Interpreted By: Polo Byrd MD, 02/19/2022 1:03 PM us Piero Berrios DO CT Final Re sult * HEPATITIS C ANTIBODY (12/21/2020 8:46 AM CDT) HEPATITIS C AB 0.1 0.0 - 0.9 s/co ratio [facility] 1 Comment: Negative: < 0.8 Indeterminate: 0.8 - 0.9 Positive: > 0.9 The CDC recommends that a positive HCV antibody result be followed up with a HCV Nucleic Acid Amplification test (408168). 12/21/2020 8:46 AM CDT 12/21/2020 Narrative [facility] - 12/22/2020 9:09 AM CDT Performed at: 01 - [facility] [address] [id number] Bonsai Tender: Hank Langley PhD, Phone: [phone] us Piero Berrios DO LABORATORY Final Re sult [facility] [address] [place] [address] [facility] 1 * COLONOSCOPY/EGD (12/26/2014) us Documents Scanned SCANNING Final Result Performing Organization Address City/[facility]/ZIP Co de Phone Number [facility] [place] from Last 3 Months or Most Recently Relevant to Health Maintenance Insurance Care Teams Rehab Spec Relationship Specialty Start Date End Date Piero Berrios DO [address] [place], [place] [id number] PCP - General FAMILY PRACTICE 05/04/18
--- OUTSIDE RECORDS SUMMARY | 2024-11-03 20:27 | XMS_ITS | Encounter Summary ---
Author Organization [facility] Address [address] [place] [address] Care Team Providers Care Real Estate Legal Secretary Name Role Phone Sunny Pete MD Unavailable [phone] Steve Ramos MD Unavailable [phone] Barrett Bañuelos MD Primary Care Provider [phone] Carlos Yu MD Primary Care Provider [phone] Barrett Bañuelos MD Primary Care Provider Encounter Details Date Type Department Care Team (Late st Contact Info) Description 08/18/2011 [facility] Outpatient Visit EXTERNAL [facility] [place] [address] [id number] Social History Tobacco Use Types Packs/Day Years Used Date Smoking Tobacco: Former Cigarettes 1 27 0 07/07/1984 - 07/08/2011 Smokeless Tobacco: Never Alcohol Use Standard Drinks/Week Comments No 0 (1 standard drink = 0.6 oz pur e alcohol) Comments No Sex and Gender Information Value Date Recorded Sex Assigned at Not on file Legal Sex Female 11:54 AM 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 Gender Identity Not on file Sexual Orientation Not on file Occupation Industry Job Start Date Job End Date NOT EMPLOYED Not on file Not on file Not on file documented as of this encounter Plan of Treatment Not on file documented as of this encounter Visit Diagnoses Not on filedocumented in this encounter Care Teams Real Estate Legal Secretary Relationship Specialty Start Date End Date Barrett Bañuelos MD [address] [place] [address] PCP - General 08/14/11 08/19/11 Carlos Yu MD [address] [place] [phone] PCP - General 08/20/11 08/24/11 Barertt Bañuelos MD [address] [place] [address] PCP - General 08/25/11 Sunny Pete MD Internal Medicine 08/28/10 Steve Ramos MD Referring Physician Physical Medicine and Rehabilitation 08/28/10 documented as of this encounter
--- OUTSIDE RECORDS SUMMARY | 2024-11-03 20:27 | XMS_ITS | Clinical Summary ---
Author Organization [facility] Address [address] [place] [address] Phone Care Team Providers Care Senior Property Manager Name Role Phone Unavailable Primary Care Provider [...] 9:11 PM CDT Height 160 cm (5' 3) 05/27/2021 9:11 PM CDT Body Mass Index [...] (1 of 2) 11/07/2017 INFLUENZA VACCINE (#1) 2024
[2024-11-03] MEDS: ONDANSETRON INJ 4 MG/2 ML VIAL IV PUSH (20:51)
[2024-11-03] MEDS: HYDROmorphone HCL INJ (*CRX) 1 MG/ML SYR 0.5 MG IV PUSH ×2 (20:52→22:24)
[2024-11-03] MEDS: SODIUM CHLORIDE 0.9% IV 1,000 ML 999 ML IV CONT (20:53)
--- NOTE | 2024-11-03 21:09 | ECG_ITS ---
Test Date: 2024-11-03 21:28:34 Measurements Intervals [place] Rate: 87 P: 65 SC: 148 QRS: -7 QRSD: 74 T: 15 QT: 364 QTc: 439 Interpretive Statements SINUS RHYTHM LOW QRS VOLTAGE IN PRECORDIAL LEADS BORDERLINE T WAVE ABNORMALITY- ANT/INF LEADS BASELINE ARTIFACT- I, II, III, AVR, AVL, AVF BORDERLINE ECG No previous ECG available for comparison Electronically Signed On 11-04-2024 06:44:09 CDT by Armando Starkey D.O.
[2024-11-03] MEDS: METOCLOPRAMIDE HCL INJ 10 MG/2 ML VIAL IV PUSH (23:03)
[2024-11-04] VITALS: BP 100/65; O2SAT 94
[2024-11-04 00:01] VITALS: O2SAT 94
== END 2024-11-04 00:43 | disposition left against medical advice (07) ==
PROVIDERS: Emergency Provider Physician Assistant; PCP Student in an Organized Health Care Education/Training Program
DX: N28.0 Ischemia and infarction of kidney (principal); F31.9 Bipolar disorder, unspecified; F17.200 Nicotine dependence, unspecified, uncomplicated; R94.31 Abnormal electrocardiogram [ECG] [EKG]
CPT/HCPCS: 36415; 74177; 80053; 81001; 83690; 85025; 93005; 96374; 96375; 99284; J1171; J1200; J2405; J2765; J7030; Q9967